=== PATIENT | female | born 1960 | race Caucasian/White ===

== ENCOUNTER 2020-04-23 16:40 | Emergency (ER) | payer BC, SELFPAY ==
--- NOTE | 2020-04-23 | CT_ITS ---
EXAMINATION: CT ANGIOGRAM OF THE CHEST WITH AND WITHOUT CONTRAST (CT PULMONARY ANGIOGRAM FOR PE) CLINICAL INFORMATION: Shortness of breath COMPARISON: Chest x-ray 02/04/2020, 04/23/2020 TECHNIQUE: Prior to contrast administration, noncontrast localization images were obtained. Subsequently, multidetector volumetric imaging was performed from the thoracic inlet to below the diaphragms following the administration of 80 mL Omnipaque 350 intravenous contrast. No contrast reaction reported Sagittal, coronal, and MIP oblique sagittal reformatted images were obtained on the CT workstation, uploaded to PACS, and reviewed. This CT examination was performed using dose optimization techniques as appropriate, variously including the following: *Automated exposure control *Adjustment of mA and/or kV according to patient size (this includes techniques or standardized protocols for targeted exams where dose is matched to indication/reason for exam; i.e. extremities or head) *Use of iterative reconstruction technique Total exam dose-length product 202 mGy-cm FINDINGS: QUALITY OF STUDY/CONTRAST BOLUS: Satisfactory. PULMONARY ARTERIES: No central or segmental pulmonary emboli. THORACIC AORTA: No aneurysm or dissection. LUNG: No infiltrate. No interstitial reticular opacities. Lung nodules: Smooth bordered lung nodule left upper lobe measuring 1 cm axial image 25 of 63. There is also an adjacent 5 mm nodule axial image 26 of 63. The largest lung nodule correlates to the density seen on the chest x-ray of 04/23/2020. PLEURA: No pleural effusion or pneumothorax. MEDIASTINUM: Normal heart size. No pericardial effusion. No hilar or mediastinal lymphadenopathy. No evidence of septal bowing or right heart strain. Central port catheter tip in superior vena cava CHEST WALL/AXILLA: No axillary or internal mammary lymphadenopathy. OSSEOUS STRUCTURES: No acute or suspicious osseous abnormality. UPPER ABDOMEN: Unremarkable. No reflux of contrast into the hepatic veins to suggest elevated right heart pressures. IMPRESSION: 1. No acute change of the chest. No evidence of pulmonary embolism. 2. 2 left upper lobe lung nodules. Largest measuring 1 cm. Various management parameters for solitary pulmonary nodules are in the literature. According to the UPDATED 2017 Fleischner Society recommendations, the advised follow-up imaging for a single solid nodule measuring 8 mm or greater is: Consider CT, PET/CT, or tissue sampling at 3 months. Reference: Guidelines for Management of Incidental Pulmonary Nodules Detected on CT Images: From the Fleischner Society 2017. VTE: negative
--- NOTE | 2020-04-23 | XR_ITS ---
EXAMINATION: XR CHEST CLINICAL INFORMATION: Shortness of breath COMPARISON: Chest x-ray 02/04/2020 TECHNIQUE: Frontal view of the chest was obtained. 5:01 PM FINDINGS: Tubes and lines: 1. Right-sided PICC line catheter tip at caval atrial junction. No acute change of chest. No infiltrate. No pulmonary vascular congestion. No pleural effusion. The heart size is normal. The cardiac and mediastinal contours are normal. There is a mildly dense nodule measuring 1 cm over the peripheral left lung. This was not present on the study of 02/04/2020. CT of chest would be helpful for further evaluation. IMPRESSION: 1. No acute infiltrate. No pulmonary vascular congestion. 2. 1 cm nodular opacity over the peripheral left lung new since prior study of 02/04/2020. CT of chest would be helpful for further assessment.
[2020-04-23 16:47] VITALS: BP 147/89; PULSE 114; RESP 28; TEMP 36.7; O2SAT 98; BMI 19.1
[2020-04-23] MEDS: Racepinephrine HCL 0.5 ML VIAL.NEB INHALE (16:52)
--- NOTE | 2020-04-23 17:20 | ED.SOB ---
HPI - SOB/Dyspnea General Chief Complaint: Dyspnea Stated Complaint: diff breathing Time Seen by Provider: 04/23/20 16:45 Source: patient Mode of arrival: wheelchair Limitations: physical limitation History of Present Illness HPI Narrative: Patient is a 60-year-old female with a history of colon cancer. Currently undergoing chemotherapy. Patient got her last chemotherapy today. Presented today with having sudden onset of increasing shortness of breath just after chemo. Denies any history of cardiac disease. Denies any history of blood clots. Currently on no blood thinners. No history of new medications. No fever no chills no coughing or congestion or upper respiratory prior. No recent travel. Patient denies any cardiac issues. No history of heart attacks. No history of congestive heart failure. No history of having similar episodes in the past. MD elicited complaint: shortness of breath Onset (ago): minute(s) Context: recent illness Severity: severe Exacerbating factors: nothing Relieving factors: nothing Associated symptoms: denies other symptoms Treatment prior to arrival: oxygen Related Data Home Medications Medication Instructions Recorded Confirmed capecitabine [Xeloda] 1,500 mg PO BID 04/23/20 04/23/20 dexamethasone [Decadron] 4 mg PO BID 04/23/20 04/23/20 ondansetron HCl [Zofran] 8 mg PO Q8H PRN 04/23/20 04/23/20 Previous Rx's Medication Instructions Recorded diphenhydramine HCl [Benadryl] 25 mg PO Q8H 5 Days #15 cap 04/23/20 epinephrine 0.3 mg IM ONCE PRN #1 ea 04/23/20 famotidine [Pepcid] 20 mg PO BID 5 Days #10 tab 04/23/20 Allergies Allergy/AdvReac Type Severity Reaction Status Date / Time Penicillins [PENICILLINS] Allergy Intermediate HIVES Verified 04/23/20 08:39 seasonal allergies Allergy Unknown Unknown Uncoded 04/23/20 08:39 Review of Systems Review of Systems: Yes Unobtainable due to mental condition PMFSH Past Medical History PMFSH Narrative: History of colon cancer currently undergoing chemotherapy. Status post colostomy Medical History (Updated 04/23/20 @ 20:05 by Shayla Patel MD) Anemia Cancer of sigmoid colon Diverticulitis GI bleed Small bowel obstruction Surgical History (Updated 04/23/20 @ 17:05 by Layla Brantley MD) History of colon resection Social History Social History Alcohol intake: former Smoking Status: Former smoker Substance Use Type: Marijuana Advance Directives: No Advance Directives Information Provided: No Advance Directives Date on File: 12/23/19 Physical Exam Vital Signs and I&O and Narrative: Vital Signs and I&O: Vital Signs Temp 98.0 F 04/23/20 16:47 Pulse 107 H 04/23/20 17:57 Resp 18 04/23/20 17:57 BP 136/66 04/23/20 17:57 Pulse Ox 97 04/23/20 17:57 Intake & Output 04/23/20 04/23/20 04/24/20 06:59 18:59 06:59 Weight 53.722 kg Body Mass Index 19.1 Const: General: comfortable, acute distress and in distress Orientation/consciousness: oriented to person HENMT: Head: Yes normal to inspection Face and sinus: Yes normal facial exam, Yes sinuses nontender, Yes face symmetric and Yes normal transillumination of sinuses Eyes: General: appearance normal, both eyes and all related structures Neck: Other: no JVDs noted. Trachea is midline. Neck: Yes normal visual inspection, Yes full ROM and Yes no lymphadenopathy Chest: Other: Positive shortness of breath with increased work of breathing. Positive stridor noted. Chest palpation & inspection: normal inspection of the chest Resp: Effort & Inspection: abnormal respiratory pattern, respiratory distress, stridor and uses accessory muscles Cardio: Jugular venous distension: no JVD Palpation: normal PMI Rate: tachycardic GI: Inspection: Yes normal to inspection Skin: General skin exam: no rashes or lesions noted Neuro: General: oriented to person Cognition (Neuro): normal cognition Extrem: General: Yes normal to inspection Psych: Appearance: grossly normal MDM - SOB/Dyspnea MDM Narrative Medical decision making narrative: Question allergic reaction. Patient just came from chemotherapy. Patient's lungs were clear O2 sat was normal. Given epinephrine nebulized treatment. Monitor in the emergency department for 2 hours. Patient already on steroids. Patient given Benadryl and also Pepcid with good results. Currently not short of breath. Patient D-dimer slightly elevated. A CTA of the chest was done. There is no evidence for pulmonary emboli. There is no pneumonia. There is no pneumothorax. Patient well-appearing O2 sat remains normal. Symptoms resolved. Question allergic reaction will discharge patient home close follow-up on an outpatient basis. Lab Data Result diagrams: 04/23/20 17:29 04/23/20 17:29 Labs: Lab Results 04/23/20 04/23/20 04/23/20 Range/Units 17:29 17:29 17:29 WBC 3.7 L (4.8-10.8) X10*3/uL RBC 3.96 L (4.20-5.50) X10*6/uL Hgb 12.0 (12.0-16.0) g/dl Hct 35.5 L (37-47) % MCV 89.6 (80-98) fL MCH 30.3 (27.0-33.0) pg MCHC 33.8 (31.0-35.0) g/dl RDW 21.3 H (11.0-16.0) % Plt Count 231 (160-400) X10*3/uL MPV 10.2 (9.4-12.3) fL Immature Gran % (Auto) 0.5 H (0.0-0.4) % Neut % (Auto) 76.9 H (45-73) % Lymph % (Auto) 21.2 (20-40) % [place] % (Auto) 1.1 L (2-11) % Eos % (Auto) 0.0 (0-4) % Baso % (Auto) 0.3 (0-2) % Neut # (Auto) 2.8 (2.0-8.3) X10*3/uL Lymph # (Auto) 0.8 L (1.2-4.9) X10*3/uL [place] # (Auto) 0.0 L (0.1-1.2) X10*3/uL Eos # (Auto) 0.0 (0.0-0.4) X10*3/uL Baso # (Auto) 0.0 (0.0-0.2) X10*3/uL Abs Immat Gran (auto) 0.02 (0.00-0.03) X10*3/uL Absolute Nucleated RBC 0.000 (0.0-0.012) X10*3/uL Nucleated RBC % (auto) 0.0 (0.0-0.2) /100WBC PT 10.0 L (10.8-13.0) SEC INR 0.8 L (0.9-1.1) D-Dimer 365 NG/ML Sodium 138 (135-145) mmol/L Potassium 3.7 (3.3-5.1) mmol/l Chloride 109 H (96-108) mmol/L Carbon Dioxide 18 L (22-29) mmol/L Anion Gap 15 (12-20) BUN 14 (9-16) mg/dL Creatinine 0.97 (0.5-1.4) mg/dL Estim Creat Clear Calc 53.0 Estimated GFR 59 Random Glucose 220 H D (60-115) mg/dL Calcium 8.8 (8.4-10.2) mg/dL Total Bilirubin 0.5 (0.0-1.0) mg/dL Direct Bilirubin 0.3 (0.0-0.5) mg/dL AST 19 (5-31) U/L ALT 19 (0-31) U/L Alkaline Phosphatase 133 H (39-117) U/L Troponin I High Sens (<3.5-17.0) ng/L B-Natriuretic Peptide (<100) pg/mL Total Protein 6.6 (6.5-8.0) g/dL Albumin 4.0 (3.5-5.0) g/dL 04/23/20 04/23/20 Range/Units 17:29 17:29 WBC (4.8-10.8) X10*3/uL RBC (4.20-5.50) X10*6/uL Hgb (12.0-16.0) g/dl Hct (37-47) % MCV (80-98) fL MCH (27.0-33.0) pg MCHC (31.0-35.0) g/dl RDW (11.0-16.0) % Plt Count (160-400) X10*3/uL MPV (9.4-12.3) fL Immature Gran % (Auto) (0.0-0.4) % Neut % (Auto) (45-73) % Lymph % (Auto) (20-40) % [place] % (Auto) (2-11) % Eos % (Auto) (0-4) % Baso % (Auto) (0-2) % Neut # (Auto) (2.0-8.3) X10*3/uL Lymph # (Auto) (1.2-4.9) X10*3/uL [place] # (Auto) (0.1-1.2) X10*3/uL Eos # (Auto) (0.0-0.4) X10*3/uL Baso # (Auto) (0.0-0.2) X10*3/uL Abs Immat Gran (auto) (0.00-0.03) X10*3/uL Absolute Nucleated RBC (0.0-0.012) X10*3/uL Nucleated RBC % (auto) (0.0-0.2) /100WBC PT (10.8-13.0) SEC INR (0.9-1.1) D-Dimer NG/ML Sodium (135-145) mmol/L Potassium (3.3-5.1) mmol/l Chloride (96-108) mmol/L Carbon Dioxide (22-29) mmol/L Anion Gap (12-20) BUN (9-16) mg/dL Creatinine (0.5-1.4) mg/dL Estim Creat Clear Calc Estimated GFR Random Glucose (60-115) mg/dL Calcium (8.4-10.2) mg/dL Total Bilirubin (0.0-1.0) mg/dL Direct Bilirubin (0.0-0.5) mg/dL AST (5-31) U/L ALT (0-31) U/L Alkaline Phosphatase (39-117) U/L Troponin I High Sens < 3.5 (<3.5-17.0) ng/L B-Natriuretic Peptide < 10 (<100) pg/mL Total Protein (6.5-8.0) g/dL Albumin (3.5-5.0) g/dL Critical Care Time Critical Care Time Critical Care Time: Yes Total Critical Care Time: 35 Attestation: I spent 35 minutes in assessing patient's critical condition. Evaluating patient's respiratory status. Treating patient's respiratory status. Discharge Plan Discharge Clinical Impression: Allergic reaction Patient Disposition: Home, Self-Care Instructions: Anaphylaxis (ED) Prescriptions: New epinephrine 0.3 mg/0.3 mL auto-injector 0.3 mg IM ONCE PRN (Reason: anaphylaxis) Qty: 1 RF: 0 famotidine [Pepcid] 20 mg tablet 20 mg PO BID 5 Days Qty: 10 RF: 0 diphenhydramine HCl [Benadryl] 25 mg capsule 25 mg PO Q8H 5 Days Qty: 15 RF: 0 No Action capecitabine [Xeloda] 500 mg tablet 1,500 mg PO BID RF: 0 ondansetron HCl [Zofran] 8 mg tablet 8 mg PO Q8H PRN (Reason: Nausea) RF: 0 dexamethasone [Decadron] 4 mg tablet 4 mg PO BID RF: 0 Referrals: Po,Zainab Yin MD [Primary Care Provider] - 2 days
[2020-04-23] MEDS: Famotidine/PF 20 MG/2 ML VIAL IVPUSH (17:32)
[2020-04-23] MEDS: diphenhydrAMINE HCL 50 MG/ML VIAL IVPUSH (17:32)
[2020-04-23 17:33] LABS: MANUAL DIFF FLAG NO
[2020-04-23 17:43] LABS: Basophils Percent Auto 0.3 % (0-2); Hematocrit 35.5 % (37-47); Imm Gran Abs Auto 0.02 X10*3/uL (0.00-0.03); Imm Gran Pct Auto 0.5 % (0.0-0.4); Lymphocytes Absolute Auto 0.8 X10*3/uL (1.2-4.9); Lymphocytes Percent Auto 21.2 % (20-40); Mean Corpuscular HGB Conc 33.8 g/dl (31.0-35.0); Mean Corpuscular Hemoglobin 30.3 pg (27.0-33.0); Mean Corpuscular Volume 89.6 fL (80-98); Mean Platelet Volume 10.2 fL (9.4-12.3); Monocytes Percent Auto 1.1 % (2-11); Neutrophils Absolute Auto 2.8 X10*3/uL (2.0-8.3); Neutrophils Percent Auto 76.9 % (45-73); Platelet Count 231 X10*3/uL (160-400); Red Blood Count 3.96 X10*6/uL (4.20-5.50); Red Cell Distribution Width 21.3 % (11.0-16.0); White Blood Count 3.7 X10*3/uL (4.8-10.8)
--- NOTE | 2020-04-23 17:43 | PC.NURSE ---
PT ABLE TO SPEAK IN FULL PROLONG SENTENCES PICC LINE WAS ACCESSED FOR MEDS AND LABS PT EMPTIED HER OSTOMY BAG
[2020-04-23 17:56] LABS: INTERNATIONAL NORM RATIO 0.8 (0.9-1.1)
[2020-04-23 17:57] VITALS: BP 136/66; PULSE 107; RESP 18; O2SAT 97
[2020-04-23 17:58] LABS: D Dimer 365 NG/ML
[2020-04-23 18:04] LABS: Alanine Aminotransferase 19 U/L (0-31); Alkaline Phosphatase 133 U/L (39-117); Anion Gap 15 (12-20); Aspartate Amino Transferase 19 U/L (5-31); Bilirubin Direct 0.3 mg/dL (0.0-0.5); Bilirubin Total 0.5 mg/dL (0.0-1.0); Blood Urea Nitrogen 14 mg/dL (9-16); Calcium 8.8 mg/dL (8.4-10.2); Carbon Dioxide 18 mmol/L (22-29); Chloride 109 mmol/L (96-108); Estimated Glomerular Filt Rate 59; Glucose Random 220 mg/dL (60-115); Potassium 3.7 mmol/l (3.3-5.1); Sodium 138 mmol/L (135-145); Total Protein 6.6 g/dL (6.5-8.0)
[2020-04-23 18:09] LABS: B Type Natriuretic Peptide < 10 pg/mL (<100); Troponin-I High Sensitivity < 3.5 ng/L (<3.5-17.0)
[2020-04-23] MEDS: iohexoL 350 MG/ML 100 ML INFUS..BTL IV (18:31)
== END 2020-04-23 20:46 | disposition home or self-care (01) ==
PROVIDERS: Emergency Provider Emergency Medicine Emergency Medical Services; PCP Internal Medicine
DX: T88.6XXA Anaphylactic reaction due to adverse effect of correct drug or medicament properly administered, initial encounter (principal); T45.1X5A Adverse effect of antineoplastic and immunosuppressive drugs, initial encounter; Y92.238 Other place in hospital as the place of occurrence of the external cause; R06.02 Shortness of breath
CPT/HCPCS: 36415; 71045; 71275; 80048; 80076; 83880; 84484; 85025; 85379; 85610; 93005; 96374; 96375; 99284; 99291; J1200

== ENCOUNTER → 2020-04-30 08:30 | Outpatient (BNV) | payer BC, SELFPAY | PROVIDERS: Visit Provider Internal Medicine Medical Oncology | DX: C18.7 Malignant neoplasm of sigmoid colon (principal) | CPT/HCPCS: 99213; 99214 ==

== ENCOUNTER → 2020-05-19 10:01 | Outpatient (BNVA) | payer BC, SELFPAY | PROVIDERS: PCP Nurse Practitioner Family; Visit Provider Surgery | DX: Z76.89 Persons encountering health services in other specified circumstances (principal) ==

== ENCOUNTER 2020-06-02 09:47 | Outpatient (REF) | payer BC, SELFPAY ==
--- NOTE | 2020-06-02 09:53 | FL_ITS ---
EXAMINATION: XR BARIUM ENEMA CLINICAL INFORMATION: Sigmoid colon cancer pre ileostomy reversal COMPARISON: Previous CT of the abdomen and pelvis most recent January 2020 TECHNIQUE: Dairy Feed Mixing Operator film was performed. A single contrast barium enema was performed using Gastrografin contrast. Contrast reaches the right colon and ileostomy. Postevacuation images were obtained. FINDINGS: There is a surgical staple line seen in the low midline pelvis. Dairy Feed Mixing Operator film is otherwise unremarkable. Contrast reaches the right colon and distal small bowel. There is diverticulosis of the colon. No leak is seen. FLUOROSCOPY TIME: 0.7 minutes DOSE AREA PRODUCT: 40 andrew per centimeter squared. Total dose 89 mgy. 28 combined overhead and fluoroscopic images. FL/FL barium enema IMPRESSION: Diverticulosis of the colon. No leak is seen.
[2020-06-02] MEDS: Diatrizoate Meglumine, Sodium 120 ML SOLUTION 720 ML PR (13:59)
== END 2020-06-02 09:48 | disposition home or self-care (01) ==
LOC: HO.XRAY 09:47
PROVIDERS: PCP Nurse Practitioner Family; Visit Provider Surgery
DX: C18.7 Malignant neoplasm of sigmoid colon (principal); Z93.2 Ileostomy status
CPT/HCPCS: 74270

== ENCOUNTER 2020-06-10 09:21 | Inpatient (IN) | payer BC, SELFPAY ==
[2020-06-05 14:38] VITALS: BMI 20.1
[2020-06-10] VITALS (17 sets, daily range): BP systolic 98–151; BP diastolic 50–78; PULSE 87–105; RESP 12–18; TEMP 36.3–36.8; O2SAT 93–100
[2020-06-10 09:15] LABS: COVID-19 Test Negative (Negative)
[2020-06-10] MEDS: Lactated Ringers 1,000 ML 100 ML IVCONT (09:30)
[2020-06-10] MEDS: SODIUM CHLORIDE 0.9% IV (09:46)
[2020-06-10] MEDS: GENTAMICIN SULFATE IV (09:46)
[2020-06-10] MEDS: Clindamycin Phosphate/D5W 900 MG/50 ML PIGGYBACK 50 MG IV (10:49)
--- NOTE | 2020-06-10 10:54 | MHC.SHP ---
Pre-Procedural Eval Section A The patient is an INPATIENT: No Changes since office visit: Yes Patient answered all questions; No Cold of Flu in the past 2 weeks, No New Medical Problems and No Changes in Medication The History & Physical has been completed within 30 days and I have reviewed it.: Yes Section B Chief Complaint: Ileostomy in place, s/p loop ileostromy closure Allergies: Allergies Allergy/AdvReac Type Severity Reaction Status Date / Time Penicillins [PENICILLINS] Allergy Intermediate Difficulty Verified 06/10/20 09:26 Breathing Plan Patient has been examined and remains a candidate for the planned procedure
--- NOTE | 2020-06-10 11:44 | P.CONAN_ITS ---
HPI - Anesthesia Eval Consult details Narrative: 60 yo female patient here for reversal of ileostomy PMFSH Past Medical History Medical History Anemia Cancer of sigmoid colon Diverticulitis GI bleed History of anxiety History of chemotherapy History of neuropathy History of tremor Hx of fracture Hx of shortness of breath Small bowel obstruction Wears partial dentures Family History Family history of problems with anesthesia: No Surgical History Surgical History H/O colonoscopy History of colon resection History of Problems with Anesthesia: No Social History Social History Are you a primary career and technology education teacher to a significant other at home: No Do you presently have visiting nurse or other home services: No Alcohol intake: former Smoking Status: Former smoker Packs Per Day: 1 Cigarettes Per Day: 20.0 Years Smoked: 44 Smoked in Last 30 Days: No Smoking Quit Date: 01/2020 Use of substances other than those prescribed or required for medical reasons: Yes Substance Use Type: Marijuana Substance Use Frequency: Occasionally Have you been hit, kicked, punched, or otherwise hurt by someone within the past year? If so, by whom?: No Spiritual Healthcare Practices: none Sabianist Healthcare Practices: none Cultural Healthcare Practices: none Advance Directives Information Provided: No Advance Directives Date on File: 12/23/19 Recently lost weight without trying: No Meds Allergies Allergy/AdvReac Type Severity Reaction Status Date / Time Penicillins [PENICILLINS] Allergy Intermediate Difficulty Verified 06/10/20 0 9:26 Breathing Exam Exam Date and Time: June 10, 2020 1144 Height,Weight and Vital Signs: Height 5 ft 6 in Weight 56.699 kg Last Vital Signs Temp 97.9 F 06/10/20 09:14 Pulse 87 06/10/20 09:14 Resp 16 06/10/20 09:14 BP 113/52 L 06/10/20 09:14 Pulse Ox 98 06/10/20 09:14 Pertinent Lab Results Pertinent Lab Results: Laboratory Tests 06/10/20 06/10/20 08:45 09:03 COVID-19 (DON) Negative COVID-19 Clin Com See Note Blood Type A Positive Antibody Screen NEGATIVE Airway Mallampati Class: II TM Dist: >3cm Neck ROM: Full Partial: Upper Heart: RRR Lungs: CTAB Assessment and Plan Assessment Anesthesia Assessment: Anesthesia Plan Discussed and Chart Reviewed Final Anesthetic Review NPO: Yes ASA Class: III Final Preanesthetic Review: No Changes in Pt Med Stat, Meds/Allgs Chart Reviewed, Consent Obtained/Reviewed and Anes Risks/Benef Reviewed Patient Risk: Intermediate Procedure Risk: Intermediate Anesthetic Plan Anesthetic Plan: GA Disposition: Standard PACU
[2020-06-10] MEDS: ondansetron HCL 4 MG/2 ML VIAL IVPUSH (14:25)
--- NOTE | 2020-06-10 14:42 | W.PM.OPN ---
Operative Note Operative Note Date of Service: 06/10/20 Narrative: Preoperative diagnosis: Ileostomy in place Postoperative diagnosis: Same Procedure: Closure of loop ileostomy Anesthesia: General endotracheal Recycler Forklift Driver Truck Driver: Janet Conte PA-C Estimated blood loss: 30 cc Specimens: Ileostomy, small-bowel anastomosis Other findings: None Immediate complications: None Indications: This is a 60-year-old female who is status post resection of a bulky carcinoma of the distal sigmoid colon. Protective loop ileostomy was created. She has completed chemotherapy. Gastrografin enema reveals that the rectosigmoid anastomosis is intact and ileostomy closure is planned. Procedure in detail: With patient in the supine position following induction of adequate general anesthesia, time-out procedure was performed. The peristomal area was prepped with Betadine solution in the remainder of the abdominal wall with ChloraPrep. Sterile drapes were applied. She received 2 g of cefazolin for antibiotic prophylaxis. Incision was made around the margin of the yet ileostomy 2-3 mm beyond the mucocutaneous margin was carried into the subcutaneous tissues. The loop of ileum was then dissected free using Metzenbaum dissection. Once the loop was completely freed, sterile towels were placed around wound edges. The ileostomy was resected. Windows were created in the mesentery at the margin of healthy appearing ileum proximal and distal to the ostomy. The ileum was divided in both positions using the RACHAEL 3.8 stapler. The intervening mesentery was divided between hemostats and ligated with 3-0 Polysorb ties. There was moderate bleeding from the mesentery and to him a small hematoma was evident initially. A functional end-to-end anastomosis was created between the stapled edges of the ileum using the RACHAEL 60, 3.8 and TA 60, 3.5 staplers. The. There was no bleeding from staple lines. The anastomosis appeared widely patent. A reinforcing suture of 3 0 Polysorb was placed at the crotch of the anastomosis. The loop of bowel was irrigated with saline solution and was inspected for bleeding. No bleeding was seen. It was noted that the hematoma in the mesentery appeared somewhat larger but did not appear to be expanding. Gloves were changed. An attempt was made to reduce the loop of ileum a through the opening in the abdominal wall. When this was done, the serosa overlying of the hematoma split and there was some oozing. This was controlled initially with a [id number] suture of 3 0 Polysorb. It was unclear whether there was slow ongoing bleeding in the mesentery. Decision was made to and resected the anastomosis and adjacent mesentery and to recreate the anastomosis. This was done. The opening in the fascial low wall of the abdomen also was somewhat tight.. The fascia was incised along the cephalad margin that for about 5 mm to allow for improved mobility. The new anastomosis was then resected. Windows were created in the mesentery at the bowel margin proximal and distal to the new anastomosis and the 2 limbs of ileum were divided using the RACHAEL 60, 3.8 stapler. The LigaSure was employed to divide the intervening mesentery. No significant bleeding was encountered. A new functional end-to-end anastomosis was then created between the 2 stapled ends of ileum using the RACHAEL 60, 3.8 stapler and the TA 60, 3.5 stapler. There was no bleeding from the internal staple line. There was some oozing from the external staple line and this was controlled using the electrosurgical pencil. The loop of bowel was irrigated with saline solution. The anastomosis was widely patent. There was no bleeding from the mesentery or external staple line. Gloves and instruments were changed. The loop of bowel was returned through the abdominal wall and the right lower quadrant was copiously irrigated with warm saline solution. There is no evidence of bleeding. Fascia was infiltrated with local anesthetic. The fascia was then closed with a running suture of 1. Maxon. Subcutaneous tissues were irrigated with saline solution. No bleeding was noted. Subcutaneous tissues were infiltrated with local anesthetic in skin was loosely closed with shreya. Wound aleisha of quarter-inch plain packing were placed between shreya and a dry sterile dressing was applied. Sponge instrument counts were correct x2. She tolerated the procedure well and was transported to the recovery room in stable condition. There were no immediate complications.
[2020-06-10] MEDS: HYDROmorphone HCl 0.5 MG/0.5 ML SYRINGE 0.25 MG IVPUSH ×2 (15:12→15:17)
[2020-06-10] MEDS: Dextrose 5 % and Lactated Ring 1,000 ML 80 ML IVCONT (17:30)
[2020-06-10] MEDS: HYDROmorphone HCl 0.5 MG/0.5 ML SYRINGE IVPUSH ×2 (20:03→23:25)
[2020-06-10] MEDS: Acetaminophen 325 MG TABLET 975 MG PO (22:38)
[2020-06-10] MEDS: Magnesium Hydrox/Alum Hydrox 30 ML ORAL.SUSP PO (22:52)
[2020-06-11] VITALS (8 sets, daily range): BP systolic 109–157; BP diastolic 55–76; PULSE 85–102; RESP 18; TEMP 36.5–36.8; O2SAT 94–97
[2020-06-11] MEDS: HYDROmorphone HCl 0.5 MG/0.5 ML SYRINGE IVPUSH ×5 (02:25→20:19)
[2020-06-11] MEDS: Acetaminophen 325 MG TABLET 975 MG PO ×2 (04:07→08:28)
[2020-06-11] MEDS: Dextrose 5 % and Lactated Ring 1,000 ML 80 ML IVCONT ×2 (04:08→16:47)
[2020-06-11 06:58] LABS: Hematocrit 33.6 % (37-47); Hemoglobin 11.4 g/dl (12.0-16.0); Mean Corpuscular HGB Conc 33.9 g/dl (31.0-35.0); Mean Corpuscular Hemoglobin 33.1 pg (27.0-33.0); Mean Corpuscular Volume 97.7 fL (80-98); Mean Platelet Volume 10.5 fL (9.4-12.3); Platelet Count 298 X10*3/uL (160-400); Red Blood Count 3.44 X10*6/uL (4.20-5.50); Red Cell Distribution Width 14.7 % (11.0-16.0); White Blood Count 10.9 X10*3/uL (4.8-10.8)
[2020-06-11 07:34] LABS: Anion Gap 10 (12-20); Blood Urea Nitrogen 7 mg/dL (9-16); Calcium 8.6 mg/dL (8.4-10.2); Carbon Dioxide 26 mmol/L (22-29); Chloride 106 mmol/L (96-108); Creatinine Clr Calc Pharmacy 80.9; Estimated Glomerular Filt Rate > 60; Glucose Fasting 110 mg/dL (60-99); Potassium 4.1 mmol/l (3.3-5.1); Sodium 138 mmol/L (135-145)
--- NOTE | 2020-06-11 07:47 | PM.PNGS ---
Subjective Subjective Interval history: A little sore at incision site but comfortable with analgesics. Tolerating liquids without nausea or vomiting. Notes belching occasionally. Denies flatus. Physical Exam Vital Signs: Vital Signs: Last Vital Signs Temp 98.2 F 06/11/20 03:50 Pulse 94 06/11/20 03:50 Resp 18 06/11/20 05:27 BP 122/62 06/11/20 03:50 Pulse Ox 96 06/11/20 03:50 Body Mass Index 20.1 Const: General: comfortable, no acute distress and alert Orientation/consciousness: patient oriented x3 Eyes: Sclerae: sclerae normal Resp: Effort & Inspection: normal respiratory effort GI: Other: dressing changed, wound aleisha advanced, no erythema of incision Inspection: No distended Palpation (GI): Soft to palpation, Tenderness to palpation present (GI) (mild, incisional) and No Rebound tenderness present Auscultation: normal bowel sounds Skin: General skin exam: no rashes or lesions noted Neuro: General: patient oriented x3 Extrem: General: Yes no clubbing, cyanosis or edema Progress Note: A&P Assessment and plan (1) Status post reversal of ileostomy: Status: Acute Assessment and Plan: Doing well post operatively, comfortable. VSS. Abd exam benign- soft, appropriate post op tenderness. Incision clean, wound aleisha advanced. Will advance to low residue diet. OOB/ambulation of halls encouraged. Await return of GI fxn. (2) Cancer of sigmoid colon: Status: Acute (3) Ileostomy in place: Status: Acute Fall Risk Details Current Medications: Current Medications Generic Name Dose Route Start Last Admin Trade Name Kikeq PRN Reason Stop Dose Admin Acetaminophen 975 mg 06/10/20 21:00 06/11/20 04:07 Acetaminophen 325 Mg Tablet PO 975 mg Q6H JAMESON Administration Al Hydroxide/Mg Hydroxide 30 ml 06/10/20 22:46 06/10/20 22:52 Magnesium Hydrox/Alum Hydrox 30 Ml Oral.Susp PO 30 ml Q4H PRN Administration Heartburn Alprazolam 0.5 mg 06/10/20 17:01 Alprazolam 0.5 Mg Tablet PO BID PRN Anxiety Hydromorphone HCl 0.5 mg 06/10/20 17:01 06/11/20 05:27 Hydromorphone Hcl 0.5 Mg/0.5 Ml Syringe IVPUSH 0.5 mg Q3H PRN Administration Pain, Severe (Pain Scale 7-10) Dextrose/Lactated Ringer's 1,000 mls @ 80 mls/hr 06/10/20 17:01 06/11/20 04:08 D5lr IVCONT 80 mls/hr .[id number] JAMESON Administration Ondansetron HCl 4 mg 06/10/20 17:01 Ondansetron Hcl 4 Mg/2 Ml Vial IVPUSH Q8H PRN Nausea and Vomiting Oxycodone HCl 5 mg 06/10/20 17:01 Oxycodone Hcl Immed Release 5 Mg Tablet PO Q4H PRN Pain, Moderate (Pain Scale 4-6 Time Spent With Patient Time: Total time spent is greater than 50% in coordination of care (as documented) at patient's floor/unit and/or counseling patient: Time with patient: 15 - 24 minutes Procedures Abscess I/D Date of Service: 06/11/20
[2020-06-11] MEDS: ondansetron HCL 4 MG/2 ML VIAL IVPUSH (08:36)
--- NOTE | 2020-06-11 11:10 | HO.POSTANES ---
Post Anesthesia Evaluation Post Anesthesia Evaluation Vital Signs: Vital Signs Temp Pulse Resp BP Pulse Ox 06/11/20 08:00 97.7 F 91 18 133/66 97 06/11/20 05:27 18 06/11/20 03:50 98.2 F 94 18 122/62 96 06/11/20 02:25 18 06/10/20 23:25 18 06/10/20 23:24 98.1 F 91 18 98/50 L 96 Anesthesia: General Mental Status: Awake Pain Control: Satisfactory Nausea/Vomiting: None Hydration: Adequate Anesthesia-Related Issues: No Anes. Related Issues
--- NOTE | 2020-06-11 13:24 | MHC.CM.PN ---
NURSE ARBORER NOTE ELECTRONIC MEDICAL RECORD REVIEWED ALONG WITH CASE DISCUSSED WITH STAFF NURSE , MET WITH PATIENT AND EXPLAINED THE ROLE OF THE NURSE ARBORER IN THE TRANSITION FROM THE HOSPITAL, PATIENT HAD S/P CLOSURE OF ILLEOSTOMY FOR SIGMOID CANCER , SHE IS S/P CHEMOTHEAPRY. SHE LIVES WITH HER AND IS INDEPENDENT IN ALL HER ADLS AND MBIITY WITH UT ANY DEVICE . PATIENT REPORTED SHE HAD THE [facility] FROM [facility] TO APRIL , AND WOULD LIKE TO HAVE THEM BACK AT DISCHARGE IF THE DOCTOR SAYS THIS IS NEEDED , CONFIRMED PCP DR LESLI PERERA DISCHARGE PLAN HOME NO SERVICES VS HOME WITH [facility] FOR NRUSING IF REQUIRED (INIATED TREFERRAL TO THE [facility] ) PCP DR LESLI PERERA PATIENT TO CALL FOR POST HPSITLQA DISCHARGE FOLLOW UP SURGICAL FOLLOW UP PER DISCHARGE INSTRUCTIONS TRANSPORTATION FAMILY
[2020-06-12] VITALS (8 sets, daily range): BP systolic 124–153; BP diastolic 58–76; PULSE 83–93; RESP 16–18; TEMP 36.2–37.2; O2SAT 92–98
[2020-06-12] MEDS: HYDROmorphone HCl 0.5 MG/0.5 ML SYRINGE IVPUSH ×4 (00:53→18:57)
[2020-06-12] MEDS: Dextrose 5 % and Lactated Ring 1,000 ML 80 ML IVCONT ×2 (04:08→17:08)
--- NOTE | 2020-06-12 07:52 | P.PNGS_ITS ---
Subjective Subjective Interval history: Feels better this morning. Had two episodes of emesis yesterday. Later began passing flatus and had a BM. Has been OOB and ambulating. Incisional pain is better. <Janet Conte PA-C Last Filed: 06/12/20 07:56> Physical Exam Vital Signs: Vital Signs: Last Vital Signs Temp 97.2 F 06/12/20 07:40 Pulse 87 06/12/20 07:40 Resp 18 06/12/20 07:40 BP 125/63 06/12/20 07:40 Pulse Ox 98 06/12/20 07:40 Body Mass Index 20.1 <CARLOS Tello Last Filed: 06/12/20 07:56> Const: General: comfortable, no acute distress and alert <CARLOS Tello Filed: 06/12/20 07:56> Orientation/consciousness: patient oriented x3 <MARKIE Tello Filed: 06/12/20 07:56> Eyes: Sclerae: sclerae normal <MARKIE Tello Filed: 06/12/20 07:56> Resp: Effort & Inspection: normal respiratory effort <MARKIE TelloDeya Filed: 06/12/20 07:56> Cardio: Rate: regular rate <MARKIE TelloDeya Filed: 06/12/20 07:56> GI: Inspection: No distended and Yes incision (clean, no erythema, wound aleisha removed) <CARLOS Tello Last Filed: 06/12/20 07:56> Palpation (GI): Soft to palpation, Tenderness to palpation present (GI) (mild, incisional) and No Rebound tenderness present <CARLOS Tello [employer] Last Filed: 06/12/20 07:56> Auscultation: normal bowel sounds <CARLOS Tello [employer] Filed: 06/12/20 07:56> Skin: General skin exam: no rashes or lesions noted <MARKIE Tello Filed: 06/12/20 07:56> Neuro: General: patient oriented x3 <Janet Conte PA-C - Last Filed: 06/12/20 07:56> Extrem: General: Yes no clubbing, cyanosis or edema <Janet Conte PA-C - Last Filed: 06/12/20 07:56> Progress Note: A&P Assessment and plan (1) Ileostomy in place: Status: Acute <Janet Conte PA-C - Last Filed: 06/12/20 07:56> (2) Cancer of sigmoid colon: Status: Acute <Janet Conte PA-C - Last Filed: 06/12/20 07:56> (3) Status post reversal of ileostomy: Status: Acute <Janet Conte PA-C - Last Filed: 06/12/20 07:56> Assessment and Plan: Doing fairly well post operatively, now with return of GI function. VSS. Abd exam benign- soft, mild incisional tenderness, incision clean and wound aleisha removed. Diet as tolerated. Continue to encourage OOB and ambulation. Home likely in next 1-2 days if tolerating solid diet and remains stable. <Janet Conte PA-C - Last Filed: 06/12/20 07:56> Seen and examined, agree with above. Continue IV fluids, increase activity as tolerated. <Olga Lidia Hess MD - Last Filed: 06/12/20 08:38> Fall Risk Details Current Medications: Current Medications Generic Name Dose Route Start Last Admin Trade Name Freq PRN Reason Stop Dose Admin Acetaminophen 975 mg 06/10/20 21:00 06/12/20 02:06 Acetaminophen 325 Mg Tablet PO Not Given Q6H JAMESON Al Hydroxide/Mg Hydroxide 30 ml 06/10/20 22:46 06/10/20 22:52 Magnesium Hydrox/Alum Hydrox 30 Ml Oral.Susp PO 30 ml Q4H PRN Administration Heartburn Alprazolam 0.5 mg 06/10/20 17:01 Alprazolam 0.5 Mg Tablet PO BID PRN Anxiety Hydromorphone HCl 0.5 mg 06/10/20 17:01 06/12/20 00:53 Hydromorphone Hcl 0.5 Mg/0.5 Ml Syringe IVPUSH 0.5 mg Q3H PRN Administration Pain, Severe (Pain Scale 7-10) Dextrose/Lactated Ringer's 1,000 mls @ 80 mls/hr 06/10/20 17:01 06/12/20 04:08 D5lr IVCONT 80 mls/hr .[id number] JAMESON Administration Ondansetron HCl 4 mg 06/10/20 17:01 06/11/20 08:36 Ondansetron Hcl 4 Mg/2 Ml Vial IVPUSH 4 mg Q8H PRN Administration Nausea and Vomiting Oxycodone HCl 5 mg 06/10/20 17:01 Oxycodone Hcl Immed Release 5 Mg Tablet PO Q4H PRN Pain, Moderate (Pain Scale 4-6 <Janet Conte PA-C - Last Filed: 06/12/20 07:56> Time Spent With Patient Time: Total time spent is greater than 50% in coordination of care (as documented) at patient's floor/unit and/or counseling patient: <Janet Conte PA-C - Last Filed: 06/12/20 07:56> Time with patient: 15 - 24 minutes <Janet Conte PA-C - Last Filed: 06/12/20 07:56> Procedures Abscess I/D Date of Service: 06/12/20 <PUNEET Tello Last Filed: 06/12/20 07:56>
--- NOTE | 2020-06-12 11:26 | MHC.CM.PN ---
nurse care transitions manager [facility] electronic medical record reviewed along with case discussed with staff nurse . met with patient she reported that she is felling better today than yesterday,(06/11 2 episodes f nausea and emesis) she is passing flatus and had small bowel movement and mild incisional pain per documentation surgeons cleaned the insicion site ,aleisha remain in place, diet advanced, liquids, continue iv fluids and iv pain medication titrate down and to oral analgeics, patient is ambulating in the room per documentation9 if patient continues to do well and then tolerate solid foods keturah may be discharged 1-2 days ,) discharge plan home no services vs home with [facility] for nrusing if required care transitions manager to continue to follow for discharge needs, pcp dr liberty loja patient to call for follow up for post hospital discharge surgical follow up per discharge instructions
[2020-06-13] MEDS: HYDROmorphone HCl 0.5 MG/0.5 ML SYRINGE IVPUSH (01:18)
[2020-06-13] MEDS: Dextrose 5 % and Lactated Ring 1,000 ML 80 ML IVCONT (03:23)
[2020-06-13 04:06] VITALS: BP 111/58; PULSE 88; RESP 17; TEMP 36.6; O2SAT 97
[2020-06-13 07:54] VITALS: BP 140/67; PULSE 92; RESP 16; TEMP 36.6; O2SAT 95
[2020-06-13] MEDS: oxyCODONE HCl Immed Release 5 MG TABLET PO ×2 (10:47→20:53)
[2020-06-13 12:04] VITALS: BP 138/77; PULSE 96; RESP 16; TEMP 36.2; O2SAT 93
--- NOTE | 2020-06-13 13:05 | PM.PNGS ---
Subjective Subjective Interval history: Feels better today. She is having less pain. No nausea. Passing flatus. Tolerating solid diet. Physical Exam Vital Signs: Vital Signs: Last Vital Signs Temp 97.1 F 06/13/20 12:04 Pulse 96 06/13/20 12:04 Resp 16 06/13/20 12:04 BP 138/77 06/13/20 12:04 Pulse Ox 93 06/13/20 12:04 Body Mass Index 20.1 Const: Other: Alert, appears comfortable Resp: Effort & Inspection: normal respiratory effort Auscultation: clear to auscultation bilaterally Cardio: Rate: regular rate Rhythm: regular rhythm GI: Other: Soft, nondistended, normoactive bowel sounds, incision right lower quadrant is clean and well approximated. Small amount of serous drainage noted on dressing. Skin: Other: Normal color, warm and dry Progress Note: A&P Assessment and plan (1) Status post reversal of ileostomy: Status: Acute Assessment and Plan: She is doing well postoperatively. Pain has diminished and she is tolerating solid diet. IV fluids will be discontinued. She will try the oxycodone for pain as needed. Anticipate discharge in next 24-48 hours. Fall Risk Details Current Medications: Current Medications Generic Name Dose Route Start Last Admin Trade Name Freq PRN Reason Stop Dose Admin Acetaminophen 975 mg 06/10/20 21:00 06/13/20 09:16 Acetaminophen 325 Mg Tablet PO Not Given Q6H JAMESON Al Hydroxide/Mg Hydroxide 30 ml 06/10/20 22:46 06/10/20 22:52 Magnesium Hydrox/Alum Hydrox 30 Ml Oral.Susp PO 30 ml Q4H PRN Administration Heartburn Alprazolam 0.5 mg 06/10/20 17:01 Alprazolam 0.5 Mg Tablet PO BID PRN Anxiety Hydromorphone HCl 0.5 mg 06/10/20 17:01 06/13/20 01:18 Hydromorphone Hcl 0.5 Mg/0.5 Ml Syringe IVPUSH 0.5 mg Q3H PRN Administration Pain, Severe (Pain Scale 7-10) Ondansetron HCl 4 mg 06/10/20 17:01 06/11/20 08:36 Ondansetron Hcl 4 Mg/2 Ml Vial IVPUSH 4 mg Q8H PRN Administration Nausea and Vomiting Oxycodone HCl 5 mg 06/10/20 17:01 06/13/20 10:47 Oxycodone Hcl Immed Release 5 Mg Tablet PO 5 mg Q4H PRN Administration Pain, Moderate (Pain Scale 4-6 Time Spent With Patient Time: Total time spent is greater than 50% in coordination of care (as documented) at patient's floor/unit and/or counseling patient: Time with patient: less than 15 minutes Procedures Abscess I/D Date of Service: 06/13/20
[2020-06-13] MEDS: Docusate Sodium 100 MG CAPSULE PO ×2 (14:07→20:52)
--- NOTE | 2020-06-13 15:57 | PC.NURSE ---
Pt requested previously refused tylenol on 06/13/20 at 1555.
[2020-06-13] MEDS: Acetaminophen 325 MG TABLET 975 MG PO ×2 (16:00→20:52)
[2020-06-13 16:05] VITALS: BP 160/80; PULSE 94; RESP 17; TEMP 36.6; O2SAT 98
[2020-06-13 19:55] VITALS: BP 137/73; RESP 18; TEMP 36.4; O2SAT 97
[2020-06-13 23:10] VITALS: BP 114/71; PULSE 99; RESP 18; TEMP 36.2; O2SAT 96
[2020-06-14 03:36] VITALS: BP 142/76; PULSE 64; RESP 18; TEMP 36.3; O2SAT 98
[2020-06-14 07:50] VITALS: BP 127/71; PULSE 96; RESP 16; TEMP 36.1; O2SAT 97
[2020-06-14] MEDS: Acetaminophen 325 MG TABLET 975 MG PO (08:36)
[2020-06-14] MEDS: oxyCODONE HCl Immed Release 5 MG TABLET PO (08:36)
[2020-06-14] MEDS: Docusate Sodium 100 MG CAPSULE PO (08:36)
--- NOTE | 2020-06-14 09:35 | PM.PNGS ---
Subjective Subjective Interval history: Feels better today. Less incisional pain. Tolerating solid diet. Physical Exam Vital Signs: Vital Signs: Last Vital Signs Temp 96.9 F 06/14/20 07:50 Pulse 96 06/14/20 07:50 Resp 16 06/14/20 07:50 BP 127/71 06/14/20 07:50 Pulse Ox 97 06/14/20 07:50 Body Mass Index 20.1 Const: Other: Alert, appears comfortable, in no distress GI: Other: Soft, nondistended, normal bowel sounds, right lower quadrant incision is clean, dry and intact Progress Note: A&P Assessment and plan (1) Status post reversal of ileostomy: Status: Acute Assessment and Plan: She is doing well following closure of diverting loop ileostomy. She will be discharged today and will follow up in the office as scheduled. (2) Cancer of sigmoid colon: Status: Acute Fall Risk Details Current Medications: Current Medications Generic Name Dose Route Start Last Admin Trade Name Freq PRN Reason Stop Dose Admin Acetaminophen 975 mg 06/10/20 21:00 06/14/20 08:36 Acetaminophen 325 Mg Tablet PO 975 mg Q6H JAMESON Administration Al Hydroxide/Mg Hydroxide 30 ml 06/10/20 22:46 06/10/20 22:52 Magnesium Hydrox/Alum Hydrox 30 Ml Oral.Susp PO 30 ml Q4H PRN Administration Heartburn Alprazolam 0.5 mg 06/10/20 17:01 Alprazolam 0.5 Mg Tablet PO BID PRN Anxiety Docusate Sodium 100 mg 06/13/20 13:15 06/14/20 08:36 Docusate Sodium 100 Mg Capsule PO 100 mg BID JAMESON Administration Hydromorphone HCl 0.5 mg 06/10/20 17:01 06/13/20 01:18 Hydromorphone Hcl 0.5 Mg/0.5 Ml Syringe IVPUSH 0.5 mg Q3H PRN Administration Pain, Severe (Pain Scale 7-10) Ondansetron HCl 4 mg 06/10/20 17:01 06/11/20 08:36 Ondansetron Hcl 4 Mg/2 Ml Vial IVPUSH 4 mg Q8H PRN Administration Nausea and Vomiting Oxycodone HCl 5 mg 06/10/20 17:01 06/14/20 08:36 Oxycodone Hcl Immed Release 5 Mg Tablet PO 5 mg Q4H PRN Administration Pain, Moderate (Pain Scale 4-6 Time Spent With Patient Time: Total time spent is greater than 50% in coordination of care (as documented) at patient's floor/unit and/or counseling patient: Time with patient: 15 - 24 minutes Procedures Abscess I/D Date of Service: 06/14/20
--- NOTE | 2020-06-14 09:38 | P.DS_ITS ---
DS: Providers Provider Date of admission: 06/10/20 09:21 Primary care physician: Mone Guerra NP DS: Diagnosis Discharge Diagnosis (1) Status post reversal of ileostomy: Status: Acute (2) Cancer of sigmoid colon: Status: Acute Problem details: Status post resection with creation of diverting loop ileostomy (ileostomy closed this admission). DS: Medications Discharge Medications Home Medications: Previous Rx's Medication Instructions Recorded alprazolam 0.5 mg PO BID PRN #60 tab 04/27/20 oxycodone 5 mg PO Q4H PRN #10 tab 06/14/20 DS: Summary Hospital Course Hospital Course: This is a 60-year-old female who presented for closure of diverting loop ileostomy, status post resection of carcinoma of the sigmoid colon and completion of adjuvant chemotherapy. On the day of admission, she was taken to the operating room where closure of diverting loop ileostomy was carried out. She tolerated the procedure well. Postoperatively, she was able to tolerate a clear liquid diet. Diet was gradually advanced to solid. She had return of bowel function and by the day of discharge, had good pain control on oral pain medication. Status at Discharge Functional status at discharge: independent ambulation Overall status at discharge: patient is progressing back to baseline Time Spent with Patient Time attestation: Total time spent providing and/or coordinating discharge services: Discharge coordination time: Less than 30 minutes Physical Exam Vital Signs: Vital Signs: Last Vital Signs Temp 96.9 F 06/14/20 07:50 Pulse 96 06/14/20 07:50 Resp 16 06/14/20 07:50 BP 127/71 06/14/20 07:50 Pulse Ox 97 06/14/20 07:50 Body Mass Index 20.1 Const: Other: Alert, comfortable, healthy-appearing HENMT: Head: Yes normocephalic and Yes atraumatic Neck: Neck: Yes normal visual inspection Resp: Auscultation: clear to auscultation bilaterally Cardio: Rate: regular rate Rhythm: regular rhythm GI: Other: Soft, nondistended, right lower quadrant incision is clean, dry and intact Psych: Insight: Good insight present (Psych) Judgement: Good judgement present (Psych) DS: Data Data Completed and Pending Pending studies at discharge: Pending at discharge 06/10/20 13:20 Surgical [PTH] Routine Labs on day of discharge: 06/09/20 13:38 Gentamicin Sulfate [Garamycin] 260 mg 0.9 % Sodium Chloride [Ns] 100 ml IV PREOP 06/10/20 08:41 Clindamycin Phosphate/D5W [Cleocin] 900 mg in 50 ml IV PREOP 06/10/20 08:45 COVID-19 ID NOW (Perez) Stat 06/10/20 09:03 Type and Screen Stat 06/10/20 09:15 Gentamicin Sulfate [Garamycin] 260 mg 0.9 % Sodium Chloride [Ns] 100 ml IV PREOP 06/10/20 09:26 Clindamycin Phosphate/D5W [Cleocin] 900 mg in 50 ml IV As directed 06/10/20 11:00 Gentamicin Sulfate [Garamycin] 260 mg 0.9 % Sodium Chloride [Ns] 100 ml IV PREOP 06/10/20 11:45 Lactated Ringers [Lr] 1,000 ml IVCONT 100 mls/hr 06/10/20 12:05 Bupivacaine MPF 0.75 % w/EPI [Sensorcaine MPF 0.75%/EPI 1:200,000] 30 ml .ROUT E .STK-MED ONE Midazolam HCl/PF [Versed] 2 mg .ROUTE .STK-MED ONE fentaNYL citrate/PF [Sublimaze] 2,500 mcg .ROUTE .STK-MED ONE 06/10/20 12:24 Lidocaine HCl 2 % MPF [Xylocaine 2 % MPF] 5 ml .ROUTE .STK-MED ONE Rocuronium [place] [Zemuron] 100 mg IV .STK-MED ONE dexAMETHasone sod phosphate [Decadron] 4 mg .ROUTE .STK-MED ONE ondansetron HCL [Zofran] 4 mg .ROUTE .STK-MED ONE propofoL [Diprivan] 200 mg IVPUSH .STK-MED ONE 06/10/20 12:44 Phenylephrine HCL 1,000 mcg IVPUSH .STK-MED ONE 06/10/20 12:56 Glycopyrrolate [Robinul] 0.2 mg .ROUTE .STK-MED ONE 06/10/20 13:02 Sugammadex Sodium [Bridion] 200 mg IVPUSH .STK-MED ONE 06/10/20 13:06 Phenylephrine HCL 10 mg .ROUTE .STK-MED ONE 06/10/20 13:45 Promethazine HCL [Phenergan] 6.25 mg 0.9 % Sodium Chloride [Ns] 50 ml IV ONCE ondansetron HCL [Zofran] 4 mg IVPUSH ONCE PRN 06/10/20 13:49 HYDROmorphone HCl [Dilaudid] 0.25 mg IVPUSH Q5M PRN 06/10/20 14:11 HYDROmorphone HCl [Dilaudid] 2 mg .ROUTE .[facility] ONE 06/10/20 14:16 Transfer Order Routine 06/10/20 14:23 Acetaminophen [Ofirmev] 1,000 mg in 100 ml IV ONCE 06/10/20 14:28 ondansetron HCL [Zofran] 4 mg .ROUTE .[facility] ONE 06/10/20 14:40 Acetaminophen [Ofirmev] 1,000 mg in 100 ml IV As directed 06/10/20 15:10 HYDROmorphone HCl [Dilaudid] 0.5 mg .ROUTE .[facility] ONE 06/10/20 Lunch Clear Liquid Diet 06/10/20 17:01 Dextrose 5 % and Lactated Ring [D5lr] 1,000 ml IVCONT 80 mls/hr 06/10/20 17:01 Compression Therapy QSHIFT 06/11/20 06:16 Basic Metabolic Panel Fasting Routine Complete Blood Count no Diff Routine Laboratory Last Values WBC 10.9 X10*3/uL (4.8-10.8) H 06/11/20 06:16 RBC 3.44 X10*6/uL (4.20-5.50) L 06/11/20 06:16 Hgb 11.4 g/dl (12.0-16.0) L 06/11/20 06:16 Hct 33.6 % (37-47) L 06/11/20 06:16 MCV 97.7 fL (80-98) 06/11/20 06:16 MCH 33.1 pg (27.0-33.0) H 06/11/20 06:16 MCHC 33.9 g/dl (31.0-35.0) 06/11/20 06:16 RDW 14.7 % (11.0-16.0) 06/11/20 06:16 Plt Count 298 X10*3/uL (160-400) D 06/11/20 06:16 MPV 10.5 fL (9.4-12.3) 06/11/20 06:16 Absolute Nucleated RBC 0.000 X10*3/uL (0.0-0.012) 06/11/20 06:16 Nucleated RBC % (auto) 0.0 /100WBC (0.0-0.2) 06/11/20 06:16 Sodium 138 mmol/L (135-145) 06/11/20 06:16 Potassium 4.1 mmol/l (3.3-5.1) 06/11/20 06:16 Chloride 106 mmol/L (96-108) 06/11/20 06:16 Carbon Dioxide 26 mmol/L (22-29) 06/11/20 06:16 Anion Gap 10 (12-20) L 06/11/20 06:16 BUN 7 mg/dL (9-16) L D 06/11/20 06:16 Creatinine 0.67 mg/dL (0.5-1.4) 06/11/20 06:16 Estim Creat Clear Calc 80.9 06/11/20 06:16 Estimated GFR > 60 06/11/20 06:16 Fasting Glucose 110 mg/dL (60-99) H 06/11/20 06:16 Calcium 8.6 mg/dL (8.4-10.2) D 06/11/20 06:16 COVID-19 (DON) Negative (Negative) 06/10/20 08:45 COVID-19 Clin Com See Note 06/10/20 08:45 Blood Type A Positive 06/10/20 09:03 Antibody Screen NEGATIVE 06/10/20 09:03 Discharge Plan Discharge Patient Disposition: Home, Self-Care Referrals: Olga Lidia Hess MD [Physician] - 06/17/20 (appointment time 3:45 PM) Mone Guerra NP [Primary Care Provider] - Discharge Medications: New oxycodone 5 mg Tablet 5 mg PO Q4H PRN (Reason: Pain, Moderate (Pain Scale 4-6) Qty: 10 RF: 0 Continued alprazolam 0.5 mg Tablet 0.5 mg PO BID PRN (Reason: Anxiety) Qty: 60 RF: 3 Discharge Orders: Discharge Order (Routine); Ordered 06/14/20 Ordered By: Olga Lidia Hess Diet: other Activity on Discharge: No heavy lifting Activity Restrictions/Additional Instructions: If the incision area is tender, you may apply an ice pack for short intervals (No more than 20 minutes on, followed by at least 20 minutes off). Do not apply heat. Do not use creams, lotions, or topical antibiotics unless instructed to do so by your surgeon. These can cause infection or allergic reaction. Ok to shower. You have shreya closing your incision and these will be removed approximately 10-14 days after surgery. Change dressing as needed. Once your incision no longer has drainage, you can discontinue dressings. Call Your Doctor If: -Your temperature exceeds 101.5? F -You experience excessive pain or swelling -You have an unexpected reaction to medication -You have excessive bleeding -You experience continued vomiting/nausea -Your incision begins to separate -Your incision shows signs of infection such as increased redness, swelling, excessive pain, drainage (light blood or clear fluid is normal) or heat Visit Report Forms: Patient Portal Discharge page Care Plan Goals: Return to baseline activity. Health Concerns: Sigmoid CA, s/p sigmoid resection with loop ileostomy in place, now s/p ileostomy reversal Plan of Treatment: Advance diet, pain control
--- NOTE | 2020-06-14 10:46 | MHC.CM.PN ---
PATIENT IS DISCHARGED HOME - SELF CARE. RN AWARE OF PLAN. FAMILY TO PROVIDE TRANSPORTATION.
== END 2020-06-14 10:45 | disposition home or self-care (01) | DRG 223 ==
LOC: HO.SSSA 09:22 → HO.S3 15:47
PROVIDERS: Admitting Provider Surgery; PCP Nurse Practitioner Family; Visit Provider Surgery
PROC: (CPT 44620; principal; 2020-06-10 10:30)
DX: Z43.2 Encounter for attention to ileostomy (principal); F17.210 Nicotine dependence, cigarettes, uncomplicated; Z20.828 Contact with and (suspected) exposure to other viral communicable diseases; Z71.6 Tobacco abuse counseling; Z88.0 Allergy status to penicillin
CPT/HCPCS: 36415; 80048; 85027; 86850; 86900; 86901; 87635; 88304; 88307; 99024; J0131; J1100; J1170; J1580; J2250; J2370; J2405; J3010

== ENCOUNTER → 2020-06-17 11:28 | Outpatient (BNVA) | payer BC, SELFPAY | PROVIDERS: PCP Nurse Practitioner Family; Referring Provider Nurse Practitioner Family; Visit Provider Surgery | DX: Z76.89 Persons encountering health services in other specified circumstances (principal) ==

== ENCOUNTER → 2020-07-07 08:49 | Outpatient (BNVA) | payer BC, SELFPAY | PROVIDERS: PCP Nurse Practitioner Family; Referring Provider Nurse Practitioner Family; Visit Provider Surgery | DX: Z76.89 Persons encountering health services in other specified circumstances (principal) ==

== ENCOUNTER → 2020-07-28 09:36 | Outpatient (BNVA) | payer BC, SELFPAY | PROVIDERS: PCP Nurse Practitioner Family; Visit Provider Surgery | DX: Z76.89 Persons encountering health services in other specified circumstances (principal) ==

== ENCOUNTER → 2020-08-27 10:13 | Outpatient (BNVA) | payer BC, SELFPAY | PROVIDERS: PCP Nurse Practitioner Family; Visit Provider Surgery ==

== ENCOUNTER 2020-09-11 07:34 | Day surgery (SDC) | payer BC, SELFPAY ==
[2020-09-04 14:04] VITALS: BMI 20.5
--- NOTE | 2020-09-10 10:17 | HO.ANESPROP2 ---
Documented by User: Jazmin Rand 09/10/20 10:19 HPI - Anesthesia Eval Consult details Narrative: 60yo F for Colonoscopy h/o sigmoid colon ca - chemo last 04/2020, s/p ileostomy and reversal PMFSH Active Problems Active Problems: All Active Problems (Updated 08/27/20 @ 13:03 by Ky Wong MD) Status post reversal of ileostomy (Acute) Cancer of sigmoid colon (Acute) Episode of shaking (Acute) Ileostomy in place (Acute) Past Medical History Medical History Anemia Cancer of sigmoid colon Diverticulitis GI bleed History of anxiety History of chemotherapy History of neuropathy History of tremor Hx of fracture Hx of shortness of breath Small bowel obstruction Wears partial dentures Surgical History Surgical History H/O colonoscopy History of colon resection History of ileostomy History of reversal of ileostomy Social History Social History Household Members: Family Housing: House Alcohol intake: former Smoking Status: Former smoker Packs Per Day: 1 Cigarettes Per Day: 20.0 Years Smoked: 44 Smoking Quit Date: 2019 Use of substances other than those prescribed or required for medical reasons: Yes Substance Use Type: Marijuana Substance Use Frequency: Occasionally Advance Directives: Yes Advance Directives Information Provided: Yes Advance Directives on File: Yes Advance Directives Date on File: 12/23/19 service: No Current occupational status: other Meds Allergies Allergy/AdvReac Type Severity Reaction Status Date / Time Penicillins [PENICILLINS] Allergy Intermediate Difficulty Verified 07/07/20 08:59 Breathing Exam Exam Date and Time: September 10, 2020 1017 Height,Weight and Vital Signs: Height 5 ft 6 in Weight 57.606 kg Pertinent Lab Results Pertinent Lab Results: Laboratory Tests 06/11/20 06/11/20 06:16 06:16 WBC 10.9 H Hgb 11.4 L Hct 33.6 L Plt Count 298 D Sodium 138 Potassium 4.1 Chloride 106 BUN 7 L D Creatinine 0.67 Assessment and Plan Assessment Anesthesia Assessment: Chart Reviewed Documented by User: Smita Reyes 09/11/20 08:30 PMFSH Past Medical History Medical History Anemia Cancer of sigmoid colon Diverticulitis GI bleed History of anxiety History of chemotherapy History of neuropathy History of tremor Hx of fracture Hx of shortness of breath Small bowel obstruction Wears partial dentures Surgical History Surgical History H/O colonoscopy History of colon resection History of ileostomy History of reversal of ileostomy Social History Social History Household Members: Family Housing: House Alcohol intake: former Smoking Status: Former smoker Packs Per Day: 1 Cigarettes Per Day: 20.0 Years Smoked: 44 Smoking Quit Date: 2019 Use of substances other than those prescribed or required for medical reasons: Yes Substance Use Type: Marijuana Substance Use Frequency: Occasionally Advance Directives: Yes Advance Directives Information Provided: Yes Advance Directives on File: Yes Advance Directives Date on File: 12/23/19 service: No Current occupational status: other Meds Allergies Allergy/AdvReac Type Severity Reaction Status Date / Time Penicillins [PENICILLINS] Allergy Intermediate Difficulty Verified 07/07/20 08:59 Breathing Exam Airway Mallampati Class: II TM Dist: >3cm Neck ROM: Full Partial: Upper Loose/Missing/Broken Teeth: No Heart: RRR Lungs: CTA Assessment and Plan Assessment Anesthesia Assessment: Anesthesia Plan Discussed and Chart Reviewed Final Anesthetic Review NPO: Yes ASA Class: II Final Preanesthetic Review: Meds/Allgs Chart Reviewed, Consent Obtained/Reviewed and Anes Risks/Benef Reviewed Patient Risk: Low Procedure Risk: Low Anesthetic Plan Anesthetic Plan: MAC: Disposition: Standard PACU
[2020-09-11 08:05] VITALS: BP 99/67; PULSE 88; RESP 16; TEMP 36.3; O2SAT 99
[2020-09-11] MEDS: Lactated Ringers 1,000 ML 100 ML IVCONT (08:11)
[2020-09-11 09:20] VITALS: BP 93/54; PULSE 76; RESP 15; TEMP 36.2; O2SAT 98
--- NOTE | 2020-09-11 09:28 | PM.OP ---
Brief Operative Note Date of Service: 09/11/20 Pre-op diagnosis: Screening Post-op diagnosis: other (Same, Diverticulosis, Internal/External hemorrhoids) Procedure: Colonoscopy to the cecum Surgeon: Wilfredo Avila Anesthesia: MAC Estimated blood loss (mL): 0 Pathology: none sent Condition: stable Disposition: PACU
[2020-09-11 09:35] VITALS: BP 100/56; PULSE 78; RESP 16; TEMP 36.2; O2SAT 97
--- NOTE | 2020-09-11 09:51 | OP_ITS ---
SURGEON: Wilfredo Avila MD INDICATIONS: The patient presents for evaluation of her previous history of colon cancer, and colorectal cancer screening. Full consent has been obtained from her for this, including risks of bleeding and perforation. PREOPERATIVE DIAGNOSIS: POSTOPERATIVE DIAGNOSIS: PROCEDURE PERFORMED: Colonoscopy to the cecum. ESTIMATED BLOOD LOSS: COMPLICATIONS: ANESTHESIA: Monitored anesthesia care. ASSISTANTS: SPECIMENS: PREOPERATIVE DIAGNOSES: Personal history of colon cancer and colorectal cancer screening. POSTOPERATIVE DIAGNOSES: Personal history of colon cancer, colorectal cancer screening, diverticulosis, and internal hemorrhoids. DESCRIPTION OF PROCEDURE: The patient was placed in the left lateral decubitus position. The digital rectal exam revealed some external hemorrhoids. The Olympus video pediatric colonoscope was entered into the rectum and advanced to the cecum with the assistance of abdominal wall pressure. Once in the cecum I did identify normal-appearing cecal pouch with appendiceal orifice and a normal-appearing ileocecal valve. There was transillumination of light deep in the right lower quadrant. The entire cecum was well visualized and appeared normal. The scope was slowly withdrawn assessing all mucosal surfaces carefully. Preparation was very good throughout the colon although there were some areas of some liquid stool, which were irrigated and removed as best as possible. I did not visualize any sign of polyps, colitis, or angiodysplasia. There was a mild amount of diverticulosis in the descending colon. The anastomosis from her previous surgery was very low at approximately 5 cm. This appeared normal. There were some retained shreya noted. I was able to retroflexed visualizing the distal rectum, which appeared normal other than internal hemorrhoids. The scope was straightened and withdrawn from the patient. She tolerated the procedure well and was returned to recovery area in stable condition. IMPRESSION: 1. Internal and external hemorrhoids. 2. Diverticulosis. PLAN: The patient should have a repeat colonoscopy in 1 year for further screening and surveillance given her previous history. She was advised to use some fiber supplements on a regular basis to see if that can help improve the regularity of her bowel movements. MD JEFF Lauren/RUBI / [id number]
== END 2020-09-11 10:15 | disposition home or self-care (01) ==
PROVIDERS: PCP Internal Medicine; Visit Provider Internal Medicine
PROC: 0DJD8ZZ Inspection of Lower Intestinal Tract, Via Natural or Artificial Opening Endoscopic (ICD-10-PCS; CPT 45378; principal; 2020-09-11 09:00)
DX: Z12.11 Encounter for screening for malignant neoplasm of colon (principal); Z85.038 Personal history of other malignant neoplasm of large intestine; Z92.21 Personal history of antineoplastic chemotherapy; K57.30 Diverticulosis of large intestine without perforation or abscess without bleeding; K64.8 Other hemorrhoids; K64.4 Residual hemorrhoidal skin tags; R19.8 Other specified symptoms and signs involving the digestive system and abdomen; D64.9 Anemia, unspecified; Z98.0 Intestinal bypass and anastomosis status; Z90.49 Acquired absence of other specified parts of digestive tract; F12.90 Cannabis use, unspecified, uncomplicated; Z87.891 Personal history of nicotine dependence; Z79.899 Other long term (current) drug therapy; Z88.0 Allergy status to penicillin
CPT/HCPCS: 45378

== ENCOUNTER 2020-11-18 08:40 | Outpatient (REF) | payer BC, SELFPAY ==
--- NOTE | 2020-11-18 08:43 | EMG_ITS ---
This is a 60-year-old woman, who had surgery for colon cancer with some pelvic extension in January of 2020. Shortly after that, she noted some numbness in the 3rd toes bilaterally. It is difficult for her to be on her feet for a long because the feet hurt and the numbness is persistent. She has no back pain. PHYSICAL EXAMINATION: On examination, she is alert and oriented with normal intellectual functions. Cranial nerves II through XII are normal. Muscle tone and strength are normal in all 4 extremities. Reflexes symmetrical. IMPRESSION: Rule out peripheral neuropathy, rule out nerve impingement. Nerve conduction EMG study: Generally normal motor and sensory nerve conduction velocities in the lower extremities except for low amplitudes of the sensory action potentials that may suggest very early sensory neuropathy. Clinical correlation is suggested. MD FRANCHESKA Carter/RUBI / [id number]
== END 2020-11-18 08:41 | disposition home or self-care (01) ==
LOC: HO.NEURO 08:40
PROVIDERS: Visit Provider Nurse Practitioner Family
DX: R20.0 Anesthesia of skin (principal); R20.2 Paresthesia of skin
CPT/HCPCS: 95885; 95913

== ENCOUNTER 2021-01-08 08:22 | Outpatient (REF) | payer BC, SELFPAY ==
--- NOTE | ~2021-01-08 | MM_ITS ---
EXAMINATION: MM SCREENING DIGITAL BREAST TOMOSYNTHESIS, BILATERAL CLINICAL INFORMATION: Screening. Asymptomatic. The lifetime risk of breast cancer based on the Tyrer-Cuzick Model is 7.7%. COMPARISON: Mammography: None. TECHNIQUE: Digital breast tomosynthesis is performed in both the craniocaudal and mediolateral oblique views along with computer-aided detection (CAD). Synthesized 2D images are generated from the tomosynthesis. FINDINGS: There are scattered areas of fibroglandular density (ACR BI-RADS breast composition Category b). No abnormal dominant mass or suspicious grouping of microcalcifications seen within the left breast. Within the right adnexa, there is a 3 mm irregularly marginated density which spot compression view and possible ultrasound is recommended. Within the lateral aspect of the right breast, approximately 5 cm from nipple, there is a circumscribed 5 x 4 mm density for which spot compression film and ultrasound is recommended. MM/MM tomosynthesis screening BI IMPRESSION: Right breast findings for which further evaluation is suggested. ASSESSMENT: BI-RADS 0: Incomplete - Need Additional Imaging Evaluation RECOMMENDATION: 1. Additional views of the right breast. 2. Targeted ultrasound if warranted after review of the additional views. 3. Radiology department staff will contact the patient for additional imaging. This patient's information was entered into a reminder system with a target due date for their next mammogram.
== END 2021-01-08 08:23 | disposition home or self-care (01) ==
LOC: HO.MAMMO 08:22
PROVIDERS: Visit Provider Internal Medicine
DX: Z12.31 Encounter for screening mammogram for malignant neoplasm of breast (principal)
CPT/HCPCS: 77063; 77067

== ENCOUNTER 2021-01-28 08:25 | Outpatient (REF) | payer BC, SELFPAY ==
[2021-01-29 11:35] LABS: BV Int Neg Control Negative (Negative)
[2021-01-29 11:36] LABS: BV Int Pos Control Positive (Positive)
[2021-01-29 11:47] LABS: CT PCR NOT DETECTED (Not Detect.); NG PCR NOT DETECTED (Not Detect.)
[2021-02-01 23:22] LABS: HPV mRNA E6/E7 rflx Not Detected (Not Detected)
== END 2021-01-28 08:26 | disposition home or self-care (01) ==
LOC: HO.LAB 08:25
PROVIDERS: PCP Internal Medicine; Visit Provider Advanced Practice Midwife
DX: Z01.419 Encounter for gynecological examination (general) (routine) without abnormal findings (principal); Z11.3 Encounter for screening for infections with a predominantly sexual mode of transmission; Z11.51 Encounter for screening for human papillomavirus (HPV); C18.7 Malignant neoplasm of sigmoid colon; Z20.2 Contact with and (suspected) exposure to infections with a predominantly sexual mode of transmission
CPT/HCPCS: 87480; 87491; 87510; 87591; 87624; 87660; 88142

== ENCOUNTER 2021-02-04 12:51 | Outpatient (REF) | payer BC, SELFPAY ==
--- NOTE | ~2021-02-04 | MM_ITS ---
EXAMINATION: MM DIAGNOSTIC DIGITAL BREAST TOMOSYNTHESIS, RIGHT US DIAGNOSTIC ULTRASOUND BREAST, RIGHT CLINICAL INFORMATION: Recall from new baseline exam for 2 findings right breast: Nodular asymmetry 9:30 o'clock position and smaller nodule overlying right axilla on MLO view. No known family history breast cancer. TC score 8%. COMPARISON: Mammography: 01/08/2021 (new baseline). TECHNIQUE: Digital breast tomosynthesis is performed. 2D images are generated from the tomosynthesis. The following views are obtained: ML, spot CC, spot MLO x3 with dermal marker. Ultrasound right breast is targeted to the outer aspect. Grayscale imaging and color Doppler are performed without and with harmonics. FINDINGS: There are scattered areas of fibroglandular density (ACR BI-RADS breast composition Category b). The small nodular density overlying the right axilla corresponds to a skin tag, confirmed on additional views today with dermal marker. The 5 mm nodule 9:30 o'clock position approximately 4 cm from nipple with smooth partly obscured margins. Ultrasound right breast demonstrates a circumscribed hypoechoic nodule 9:00 position 5 cm from nipple measuring approximately 5 x 4 mm. There is some scattered internal color flow consistent with solid lesion. There is no increased or decreased through transmission of sound. Results are discussed with the patient at time of visit. The small nodule right breast is circumscribed and benign appearing, possibly old fibroadenoma. Chronicity is uncertain as patient has only recent new baseline. Management plan is for short interval follow-up to confirm stability. MM/MM tomosynthesis added views R IMPRESSION: 1. Circumscribed probable benign 0.5 cm nodule 9:00 position right breast approximately 5 cm from nipple. 2. Incidental skin tag overlying right axilla corresponding to finding on recent screening mammography right MLO view. ASSESSMENT: BI-RADS 3: Probably Benign RECOMMENDATION: Diagnostic right mammography and targeted right breast ultrasound for the probable benign nodule 9:00 position, to be performed in 6 months. This patient's information was entered into a reminder system with a target due date for their next mammogram.
== END 2021-02-04 12:52 | disposition home or self-care (01) ==
LOC: HO.MAMMO 12:51
PROVIDERS: Visit Provider Internal Medicine
DX: R92.2 Inconclusive mammogram (principal)
CPT/HCPCS: 76642; 77061; 77065

== ENCOUNTER 2021-05-11 08:53 | Outpatient (REF) | payer BC, SELFPAY ==
--- NOTE | ~2021-05-11 | CT_ITS ---
EXAMINATION: CT ABDOMEN AND PELVIS WITH CONTRAST CLINICAL INFORMATION: History of colon cancer stage III. Rising CA level. COMPARISON: CT abdomen and pelvis 02/03/2020. TECHNIQUE: Multidetector volumetric images were obtained from the superior aspect of the liver through the pubic symphysis following administration 85 mL of Omnipaque 350 intravenous contrast. Sagittal and coronal reformatted images were obtained on the technologist's workstation. Oral contrast: No This CT examination was performed using dose optimization techniques as appropriate, variously including the following: *Automated exposure control *Adjustment of mA and/or kV according to patient size (this includes techniques or standardized protocols for targeted exams where dose is matched to indication/reason for exam; i.e. extremities or head) *Use of iterative reconstruction technique DLP: 369 mGy-cm FINDINGS: LUNG BASES: Minimal right basal atelectasis seen. The heart size is normal. LIVER, GALLBLADDER, AND BILIARY TREE: The liver is normal in size, shape, and attenuation. No focal hepatic lesion or biliary ductal dilatation is present. The gallbladder is unremarkable with no evidence of radiopaque gallstones, gallbladder wall thickening, or obvious pericholecystic inflammatory changes. PANCREAS: Unremarkable. SPLEEN: Unremarkable. ADRENAL GLANDS: There is a left adrenal hypodense lesion measuring 1.1 x 0.6 cm. The right adrenal gland is normal. KIDNEYS AND URETERS: The kidneys are normal in size, shape, and attenuation. No hydronephrosis, hydroureter, or calculi seen. No perinephric stranding. BLADDER: Unremarkable. GASTROINTESTINAL TRACT: Oral contrast-opacified colon is normal caliber. There are postsurgical changes in the sigmoid colon with widely patent lumen. The contrast-opacified distal small bowel is normal caliber. The rest of the small bowel is unremarkable. Appendix is normal caliber. No free air or free fluid seen. ABDOMINAL WALL: No significant hernia is appreciated. LYMPH NODES: Normal. VASCULAR: Unremarkable. PELVIC VISCERA: The uterus is retroverted. There is no adnexal mass or free fluid. OSSEOUS STRUCTURES: No lytic or sclerotic process seen. CT/CT abdomen pelvis w con IMPRESSION: Anastomotic suture line along the sigmoid colon with patent lumen. No recurrent mass. No abnormal lymphadenopathy. Mild constipation. Left adrenal 1.1 cm lesion, stable.
--- NOTE | ~2021-05-11 | CT_ITS ---
EXAMINATION: CT CHEST WITH CONTRAST CLINICAL INFORMATION: Colon cancer. Increasing CEA. COMPARISON: Previous chest CT scans most recent April 2020 TECHNIQUE: Multidetector volumetric CT imaging of the chest was obtained after the administration of 85 mL of Omnipaque 350 intravenous contrast without immediate adverse reactions. Axial MIP volume rendering provided. Sagittal and coronal reformatted images were obtained. This CT examination was performed using dose optimization techniques as appropriate, variously including the following: *Automated exposure control *Adjustment of mA and/or kV according to patient size (this includes techniques or standardized protocols for targeted exams where dose is matched to indication/reason for exam; i.e. extremities or head) *Use of iterative reconstruction technique DLP: 100 mGy-cm FINDINGS: LUNGS: There is interval increase in size and number of the bilateral nodules. Largest right pulmonary nodules measure 0.7 x 1.2 cm axial image 195 series 7 compared to 3 x 5 mm axial image 183 series 7 on prior exam in the anterior segment of the right upper lobe and a cavitary nodule in the posterior segment of the right upper lobe measuring 0.9 x 1.1 cm axial image 205 series 7 which is new. Largest left pulmonary nodule is a cavitary nodule in the left upper lobe measuring 1.6 cm axial image 219 series 7 compared to 0.8 cm axial image 202 series 04/29/2020 exam. MEDIASTINUM: There are small mediastinal and hilar lymph nodes that are stable. The mediastinum is otherwise normal. PLEURA: There is no pleural effusion. No pleural mass or thickening. AXILLA: No lymphadenopathy. 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 Bony structures are otherwise unremarkable. CT/CT chest w con IMPRESSION: Interval increase in size and number of bilateral pulmonary nodules.
[2021-05-11] MEDS: iohexoL 350 MG/ML 100 ML INFUS..BTL 85 ML IV (12:48)
== END 2021-05-11 08:54 | disposition home or self-care (01) ==
LOC: HO.CT 08:53
PROVIDERS: Visit Provider Internal Medicine Medical Oncology
DX: Z85.038 Personal history of other malignant neoplasm of large intestine (principal)
CPT/HCPCS: 71260; 74177; Q9967

== ENCOUNTER → 2021-05-21 09:53 | Outpatient (BNVA) | payer BC, SELFPAY | PROVIDERS: PCP Internal Medicine; Visit Provider Surgery | DX: R91.8 Other nonspecific abnormal finding of lung field (principal); C18.7 Malignant neoplasm of sigmoid colon; Z79.899 Other long term (current) drug therapy; Z87.891 Personal history of nicotine dependence; Z92.21 Personal history of antineoplastic chemotherapy | CPT/HCPCS: 99212 ==

== ENCOUNTER → 2021-06-11 09:48 | Outpatient (BNVA) | payer BC, SELFPAY | PROVIDERS: PCP Internal Medicine; Visit Provider Surgery | DX: R91.8 Other nonspecific abnormal finding of lung field (principal); C18.7 Malignant neoplasm of sigmoid colon; Z79.899 Other long term (current) drug therapy; Z92.21 Personal history of antineoplastic chemotherapy | CPT/HCPCS: 99212 ==

== ENCOUNTER 2021-06-29 09:04 | Outpatient (REF) | payer BC, SELFPAY ==
--- NOTE | ~2021-06-29 | PE_ITS ---
EXAMINATION: Fluorine-18 FDG PET/CT Scan CLINICAL INDICATION: Initial treatment management. Pulmonary nodule. PROCEDURE: 57 minutes following the intravenous administration of 15.3 mCi of fluorine 18 FDG, images from the base of the skull to the mid thighs were obtained using a combined PET/CT scanner with CT scan based attenuation correction. No oral contrast was administered. No intravenous contrast was administered. Transverse, coronal, sagittal, and volume reconstruction projections were obtained. The patient's blood glucose as determined by a finger stick, was 86 mg/dl immediately prior to injection. Total CT exam dose-length product 485.48 mGy-cm * These CT images were obtained using dose optimization techniques as appropriate, variously including the following: Automated exposure control * Adjustment of mA and/or kV according to patient size (this includes techniques or standardized protocols for targeted exams where dose is matched to indication/reason for exam; i.e. extremities or head) * Use of iterative reconstruction technique COMPARISON: No previous PET/CT scan is available for comparison. The diagnostic CT scan of the chest, abdomen, and pelvis, dated 05/11/2021, is available for comparison. Several less recent CT scans of the abdomen and pelvis dating back to 12/12/2019 are also available for comparison. FINDINGS: (Slice numbers described in this report are numbered superiorly to inferiorly with slice #1 in the head) NECK AND VISUALIZED HEAD: No foci of abnormal FDG activity are noted. The distribution of FDG activity is physiological. There is no cervical lymphadenopathy. THORAX: Multiple FDG avid pulmonary nodules are present bilaterally. Most prominent of these is in the base of the left upper lobe abutting the lateral aspect of the interlobar fissure showing SUVmax 4.5, slice 80/267. On the CT images this measures 2.0 x 1.7 cm in largest transverse dimensions, and approximately 2.1 cm cephalocaudad. Most prominent FDG avid nodule in the right lung is in the medial inferior aspect of the right upper lobe and shows SUVmax 4.9, slice 76/267 and measures 1.3 x 1.0 cm in largest transverse dimensions and approximately 1.4 cm cephalocaudad. There is a weakly FDG avid lateral subpleural 0.9 cm nodule in the right lung apex, slice 58/267 and another in the medial base of the right upper lobe just anterior to the interlobar fissure measuring 1.3 x 1.1 cm in largest transverse dimensions, slice 77/267. This lesion shows significant central necrosis or cavitation. The appearance of these lesions is not significantly changed from the diagnostic CT scan dated 05/11/2021. No additional foci of abnormal FDG activity are present in the chest. There is no mediastinal, supraclavicular, or axillary lymphadenopathy. There is no pleural or pericardial fluid, or pneumothorax. ABDOMEN AND PELVIS: There is an FDG avid hypodensity medially in liver Couinaud segment 6 showing S SUVmax 8.6, slice 132/267. The corresponding hypodensity on the CT images measures 2.2 x 1.9 cm in largest transverse dimensions, and approximately 1.8 cm cephalocaudad. No other liver abnormalities are noted. The gallbladder, spleen, kidneys, and pancreas are unremarkable. A subcentimeter hypodensity in the left adrenal gland, slice 129/267 shows no abnormal FDG activity and is likely benign. This subcentimeter hypodensity does not appear significantly changed from the earliest available CT scan dated 12/12/2019. The adrenal glands are otherwise unremarkable. There is a mildly FDG avid 1.0 x 0.7 cm left para-aortic retroperitoneal lymph node, and SUVmax 3.1, slice 151/267. There is an additional FDG avid 1.5 x 1.2 cm left common iliac lymph node, SUVmax 4.5, slice 175/267. There is mild FDG activity throughout the gastrointestinal tract without a suspicious focal component. There is a suture line in the distal ileum, just proximal to the ileocecal valve and this does not show more prominently increased FDG activity, with adjacent luminal activity similar to the intensity throughout most of the large bowel. There is no additional retroperitoneal, mesenteric, pelvic or inguinal lymphadenopathy. MUSCULOSKELETAL: No foci of abnormal FDG activity are present in the osseous structures. There are mild degenerative changes in the spine but no suspicious sclerotic or lytic lesions are visualized. VASCULAR: Vascular calcifications are noted, most prominently in the distal aorta and proximal common iliac arteries. PET/PET CT fusion skull to thigh IMPRESSION: Multiple FDG avid pulmonary nodules of varying intensities are noted as described above, most consistent with malignant lesions. These may all represent metastases, or the largest lesion may represent a primary pulmonary malignancy. An FDG avid hepatic hypodensity is most consistent with a metastasis. Several FDG avid retroperitoneal and left common iliac lymph nodes are most consistent with additional metastases.
== END 2021-06-29 09:05 | disposition home or self-care (01) ==
LOC: HO.PET 09:04
PROVIDERS: PCP Internal Medicine; Visit Provider Surgery
DX: Z13.89 Encounter for screening for other disorder (principal)

== ENCOUNTER 2021-07-02 06:55 | Day surgery (SDC) | payer BC, SELFPAY ==
--- NOTE | ~2021-07-02 | IR_ITS ---
PROCEDURE: IR INSERTION OF TUNNEL CATHETER CLINICAL INFORMATION: Metastatic colon cancer. COMPARISON: None TECHNIQUE: Procedure and risks and benefits including bleeding, infection and pneumothorax were discussed with the patient, and informed consent was obtained. All elements of maximal sterile barrier technique followed including use of cap, mask, sterile gown, sterile gloves, a sterile full body drape and hand hygiene. Also followed skin preparation with 2% chlorhexidine for cutaneous antisepsis, and sterile ultrasound preparation with sterile gel and probe cover when applicable. The right neck and chest were prepped and draped in the usual sterile fashion. The skin and soft tissues of the right lower neck were anesthetized with 1% lidocaine with epinephrine. A small incision was made. Using ultrasound guidance and a 5-Cuban micropuncture system, right internal jugular vein access was obtained. Over an .018 wire, a 5-Cuban dilator was positioned in the SVC. The skin and soft tissues of the right upper anterior chest were anesthetized with 1% lidocaine with epinephrine. A small incision was made. Using blunt dissection, a subcutaneous pocket was created. A subcutaneous tunnel from the chest to the neck incision was anesthetized with 1% lidocaine with epinephrine. Using a tunneler, a 6.6-Cuban single-lumen catheter was tunneled from the chest to the neck incision. The catheter was attached to the port. The port was positioned in the subcutaneous pocket and secured using two 2-0 nonabsorbable sutures. An .035 guidewire was advanced through the 5-Cuban dilator into the IVC. The 5-Cuban dilator was exchanged for a 7-Cuban peel-away sheath. Using bent wire technique, catheter length was estimated and the catheter was cut. Catheter length is 20 cm. The catheter was fed through the peel-away sheath. The neck incision was closed using a 4-0 absorbable subcuticular suture. The chest incision was closed using four 3-0 absorbable interrupted sutures followed by a running absorbable 4-0 subcuticular suture. The port was accessed. The port had good blood return, flushed easily and was instilled with heparin 5 mL of 100 unit per mL solution. Real-time ultrasound guidance was used to document vein patency and for needle entry. A formal ultrasound picture was recorded. The patient received Versed 1 mg and fentanyl 50 mcg intravenously during the procedure and clindamycin 600 mg IV. Total sedation time was 40 minutes. Fluoroscopy time 0.4 minutes. DAP 19 cGy-cm2. 1 saved fluoroscopic image. FINDINGS: There is a right internal jugular Port-A-Cath with tip projecting over the cavoatrial junction. IR/IR cvc insert tunnel w prt/loss prevention leader IMPRESSION: Right internal jugular 6.6-Cuban single-lumen Dignity Port-A-Cath placement.
[2021-07-02 07:04] VITALS: BMI 21.3
[2021-07-02 07:23] LABS: MANUAL DIFF FLAG NO
[2021-07-02 07:25] LABS: Basophils Absolute Auto 0.1 X10*3/uL (0.0-0.2); Basophils Percent Auto 0.9 % (0-2); Eosinophils Absolute Auto 0.2 X10*3/uL (0.0-0.4); Eosinophils Percent Auto 2.4 % (0-4); Hematocrit 39.5 % (37.0-47.0); Hemoglobin 13.2 g/dl (12.0-16.0); Imm Gran Abs Auto 0.04 X10*3/uL (0.00-0.03); Imm Gran Pct Auto 0.4 % (0.0-0.4); Lymphocytes Absolute Auto 2.6 X10*3/uL (1.2-4.9); Lymphocytes Percent Auto 28.3 % (20-40); Mean Corpuscular HGB Conc 33.4 g/dl (31.0-35.0); Mean Corpuscular Hemoglobin 31.4 pg (27.0-33.0); Mean Platelet Volume 9.8 fL (9.4-12.3); Monocytes Absolute Auto 0.8 X10*3/uL (0.1-1.2); Monocytes Percent Auto 8.6 % (2-11); Neutrophils Absolute Auto 5.6 x10*3/uL (2.0-8.3); Neutrophils Percent Auto 59.4 % (45-73); Platelet Count 294 X10*3/uL (160-400); Red Cell Distribution Width 12.2 % (11.0-16.0); White Blood Count 9.3 X10*3/uL (4.8-10.8)
[2021-07-02 07:52] LABS: INTERNATIONAL NORM RATIO 0.9 (0.9-1.1); Prothrombin Time 9.9 SEC (9.9-13.0)
[2021-07-02 07:55] LABS: Partial Thromboplastin Time 31.5 SEC (24.1-38.0)
[2021-07-02 08:13] LABS: Glucose, Whole Blood 92 mg/dL (60-115)
[2021-07-02] MEDS: Lidocaine HCl 1 % MPF 5 ML VIAL SUBCUT (09:38)
[2021-07-02 10:10] VITALS: BP 108/56; PULSE 80; RESP 16; TEMP 36.9; O2SAT 98
[2021-07-02 10:25] VITALS: BP 104/46; PULSE 85; RESP 16; O2SAT 98
[2021-07-02 10:40] VITALS: BP 111/61; PULSE 80; RESP 16; O2SAT 98
--- NOTE | 2021-07-02 10:51 | HO.RADPN ---
RADIOLOGY Narrative Narrative: Right IJ 6.6 fr single lumen portacath placed. Tip in SVC.
[2021-07-02 10:55] VITALS: BP 112/67; PULSE 82; RESP 16; O2SAT 96
[2021-07-02 11:10] VITALS: BP 112/57; PULSE 83; RESP 16; TEMP 36.8; O2SAT 95
== END 2021-07-02 12:22 | disposition home or self-care (01) ==
PROVIDERS: Radiology Diagnostic Radiology; PCP Internal Medicine; Visit Provider Radiology Diagnostic Radiology
DX: Z45.2 Encounter for adjustment and management of vascular access device (principal); C78.00 Secondary malignant neoplasm of unspecified lung; C78.7 Secondary malignant neoplasm of liver and intrahepatic bile duct; C77.2 Secondary and unspecified malignant neoplasm of intra-abdominal lymph nodes; C18.7 Malignant neoplasm of sigmoid colon; Z92.21 Personal history of antineoplastic chemotherapy; Z87.891 Personal history of nicotine dependence; Z79.899 Other long term (current) drug therapy; Z88.0 Allergy status to penicillin
CPT/HCPCS: 36415; 36561; 82947; 85025; 85610; 85730; 99152; 99153; C1769; C1788; J1642; J2250; J3010; J3370

== ENCOUNTER 2021-08-31 13:12 | Outpatient (REF) | payer BC, SELFPAY ==
--- NOTE | ~2021-08-31 | MM_ITS ---
EXAMINATION: MM DIAGNOSTIC DIGITAL BREAST TOMOSYNTHESIS, RIGHT US DIAGNOSTIC ULTRASOUND BREAST, RIGHT CLINICAL INFORMATION: Short interval six-month follow-up probable benign circumscribed hypoechoic nodule 9:00 position right breast. TC score 10%. COMPARISON: Mammography: 02/04/2021, 01/08/2021 (BI-RADS 0, new baseline), ultrasound right breast 02/04/2021. TECHNIQUE: Digital breast tomosynthesis is performed in both the craniocaudal and mediolateral oblique views along with computer-aided detection (CAD). Synthesized 2D images are generated from the tomosynthesis. Ultrasound right breast is targeted to the outer quadrant. Grayscale imaging and color Doppler are performed without and with harmonics. FINDINGS: There are scattered areas of fibroglandular density (ACR BI-RADS breast composition Category b). Parenchymal pattern is similar to prior studies. Smooth nodule mid 9:00 position is stable. There is no developing density or interval architectural abnormality. Dermal lesion again seen overlying right axilla on MLO view. No abnormal calcifications. No significant changes. Ultrasound right breast demonstrates a stable circumscribed mildly hypoechoic nodule, long axis parallel with the skin. No internal color flow. No increased or decreased through transmission of sound. Nodule measures approximately 5 x 4 mm similar to prior exam. Results are provided to the patient at time of visit by the technologist. MM/MM tomosynthesis diagnostic RT IMPRESSION: Stable smooth circumscribed benign-appearing nodule 9:00 right breast. ASSESSMENT: BI-RADS 3: Probably Benign RECOMMENDATION: Diagnostic mammography at time of annual bilateral mammography, due in 6 months. This patient's information was entered into a reminder system with a target due date for their next mammogram.
== END 2021-08-31 13:13 | disposition home or self-care (01) ==
LOC: HO.MAMMO 13:12
PROVIDERS: Visit Provider Internal Medicine
DX: N63.15 Unspecified lump in the right breast, overlapping quadrants (principal)
CPT/HCPCS: 76642; 77061; 77065

== ENCOUNTER 2021-10-21 07:57 | Outpatient (REF) | payer BC, SELFPAY ==
--- NOTE | ~2021-10-21 | CT_ITS ---
EXAMINATION: CT CHEST WITH CONTRAST CT ABDOMEN AND PELVIS WITH CONTRAST CLINICAL INFORMATION: Lung metastases from colon cancer on chemotherapy. Restaging. COMPARISON: Multiple priors, including PET/CT from 06/29/[address] from 05/11/2021 . TECHNIQUE: Multidetector volumetric imaging was performed through the chest, abdomen and pelvis following the administration of oral and 85 mL of Omnipaque 350 intravenous contrast. Sagittal and coronal reformatted images were obtained on the technologist's workstation. Axial MIP volume rendering provided. This CT examination was performed using dose optimization techniques as appropriate, variously including the following: *Automated exposure control *Adjustment of mA and/or kV according to patient size (this includes techniques or standardized protocols for targeted exams where dose is matched to indication/reason for exam; i.e. extremities or head) *Use of iterative reconstruction technique DLP: 353 mGy-cm. FINDINGS: CHEST: Lungs: The central airways are patent. There is mild centrilobular emphysema which is greatest at the lung apices. No dense consolidation. No pleural effusion or pneumothorax. There were several pulmonary nodules on the previous PET/CT which were FDG avid. There are nodules again noted. 1. Subpleural right apical nodule measuring 0.7 cm on series 7 image 75. This is similar in size to prior PET. 2. Right upper lobe perihilar nodule anteriorly measuring 0.6 cm on image 182. This is decreased from prior, measuring 1.3 cm at that time. 3. Left upper lobe lateral nodule with central bronchograms. This measures 1.5 cm on image 207. This previously measured 1.9 cm. 4. There was an additional FDG avid nodule posteriorly in the right upper lobe which is also decreased, measuring 0.6 cm on image 199, compared to 1.2 cm on prior. No new pulmonary nodules. Mediastinum: The heart is of normal size. There is no pericardial effusion. Central vascular structures are unremarkable. No hilar or mediastinal lymphadenopathy. Chest Wall/Axilla: No lymphadenopathy. No chest wall mass. There is a right chest wall port in place. ABDOMEN/PELVIS: Liver, Gallbladder, Biliary Tree: The liver is normal in size, shape, and attenuation. No biliary ductal dilatation. The previously visualized FDG avid lesion in the right lobe of the liver is decreased in prominence. This measures 1.3 cm on series 3 image 25. Comparison to prior noncontrast PET/CT is limited, but this does appear decreased in size. There are no new liver lesions identified. The gallbladder is unremarkable with no evidence of radiopaque gallstones, gallbladder wall thickening, or pericholecystic inflammatory changes. Pancreas: Unremarkable. Spleen: Unremarkable. Adrenal Glands: The right adrenal gland is unremarkable. There is a 0.7 cm nodule in the left adrenal gland along the medial limb. This is unchanged. No abnormal FDG activity at this location. Kidneys and Ureters: The kidneys are normal in size, shape, and attenuation. No hydronephrosis, hydroureter or calculi seen. No perinephric stranding. Bladder: Decompressed with no gross abnormality. Gastrointestinal Tract: Small hiatal hernia. The stomach is otherwise unremarkable. Normal caliber small bowel. No obstruction. No colonic wall thickening or acute inflammation. Scattered diverticulosis without diverticulitis. No free air or free fluid. The appendix is unremarkable. Abdominal Wall: No hernia is demonstrated. Lymphovascular Structures: Lymph nodes: There is no lymphadenopathy. There was a previously FDG avid node along the left iliac chain which is without pathologic enlargement. Vascular: Normal caliber aorta with moderate calcific and noncalcific atherosclerotic plaque. Pelvic Viscera: The uterus and adnexa are unremarkable. OSSEOUS STRUCTURES: No acute or suspicious osseous abnormality. Mild degenerative changes of the spine. Mild degenerative changes in the hips. CT/CT abdomen pelvis w con IMPRESSION: Partial improvement from prior imaging. Multiple pulmonary nodules showing decrease in size. No new pulmonary nodule. Decreasing prominence of the hypoattenuating lesion in the right lobe of the liver. Decreased prominence of previous FDG avid left iliac lymph node. No new lymphadenopathy.
[2021-10-21] MEDS: iohexoL 350 MG/ML 100 ML INFUS..BTL IV (11:34)
[2021-10-21] MEDS: Barium Sulfate Oral (Vanilla) 450 ML ORAL.SUSP 900 ML PO (11:35)
== END 2021-10-21 07:58 | disposition home or self-care (01) ==
LOC: HO.CT 07:57
PROVIDERS: PCP Internal Medicine; Visit Provider Internal Medicine Medical Oncology
DX: C18.7 Malignant neoplasm of sigmoid colon (principal); R91.8 Other nonspecific abnormal finding of lung field
CPT/HCPCS: 71260; 74177; Q9967

== ENCOUNTER 2022-01-28 07:31 | Outpatient (REF) | payer BC, SELFPAY ==
--- NOTE | ~2022-01-28 | CT_ITS ---
EXAMINATION: CT CHEST WITH CONTRAST CT ABDOMEN AND PELVIS WITH CONTRAST CLINICAL INFORMATION: Follow up colon cancer. Follow-up lung metastases. COMPARISON: CT chest, abdomen and pelvis with contrast 10/21/2021. TECHNIQUE: 5 mm thin axial and reformatted 3 mm thin sagittal and coronal images of chest, abdomen and pelvis were obtained following IV 85 mL Omnipaque 350. DLP: 221 mGy-cm FINDINGS: CHEST: Lungs: The lungs are well-expanded without acute pneumonic process. There is 7 mm spiculated lesion right upper lobe axial image 78/5, same size as before, 2 mm subpleural nodule right upper lobe axial image 191/5 previously measured 1 mm. There is a spiculated lesion left upper lobe with central cavity formation measuring 1.5 x 1.1 cm, 7 mm nodule right lower lobe superior segment axial image 212/5, previously measured 5 mm. There are minimal dependent atelectatic changes in lung bases. Mediastinum: The thyroid lobes are symmetric and normal. The central trachea and the bronchi are widely patent. The heart size and great vessels are normal caliber. No pericardial effusion seen. No abnormal sized mediastinal or hilar lymph nodes seen. Pleura: There is no pleural thickening or effusion seen. Axilla: No abnormal axillary lymph nodes seen. There is a right lateral chest wall 6 mm lymph node on axial image 35/3. Osseous Structures: No lytic or sclerotic process seen. ABDOMEN AND PELVIS: Liver, Ducts and Gallbladder: There is a right hepatic hypodense 1.1 cm lesion medially, similar to previous study. No additional lesions seen. There is no intrahepatic ductal dilatation. The gallbladder is nondilated. Spleen: The spleen is mildly enlarged compared to previous exam. Pancreas: Unremarkable. Adrenal Glands: The right adrenal gland appears unremarkable. There is a left adrenal 8 mm hypodense nodule. Kidneys and Ureters: Both kidneys are normal size, shape and position. No radiopaque renal calculi or hydronephrosis seen. There is no perinephric stranding. Lymphovascular Structures: Abdominal aorta is normal caliber no aneurysmal dilatation seen. No abnormal retroperitoneal lymph nodes seen. GI Tract: There is a large amount of stool seen in the colon with significant constipation. The small bowel loops are normal caliber. There is annular suture line seen along the sigmoid colon with widely patent lumen. Appendix not visualized. No free fluid or free air. Pelvis: The uterus is retroverted. No adnexal mass or lymph nodes seen. No evidence of hernia. Osseous Structures: There are degenerative disc changes L3-L4, L2-L3 disc levels with mild ventral spondylosis. No aggressive lytic or sclerotic process seen. CT/CT abdomen pelvis w con IMPRESSION: Stable spiculated lesions and nodules as described above; there may be one nodule minimally prominent by 1 mm. No new pulmonary nodules. No abnormal mediastinal axillary lymphadenopathy. A 6 mm lateral chest wall nodule/lymph node is stable. Small hypodense nodule right hepatic lobe is stable. Left adrenal nodule is stable. Suspect mild splenomegaly, slightly increased in thickness. Significant constipation with widely patent anastomotic sigmoid site.
[2022-01-28] MEDS: iohexoL 350 MG/ML 100 ML INFUS..BTL IV (11:07)
[2022-01-28] MEDS: Barium Sulfate Oral (Berry) 450 ML ORAL.SUSP 900 ML PO (11:11)
== END 2022-01-28 07:32 | disposition home or self-care (01) ==
LOC: HO.CT 07:31
PROVIDERS: PCP Internal Medicine; Visit Provider Internal Medicine Medical Oncology
DX: C18.7 Malignant neoplasm of sigmoid colon (principal)
CPT/HCPCS: 71260; 74177; Q9967

== ENCOUNTER 2022-03-22 08:49 | Outpatient (REF) | payer BC, SELFPAY ==
--- NOTE | ~2022-03-22 | MM_ITS ---
EXAMINATION: MM DIAGNOSTIC DIGITAL BREAST TOMOSYNTHESIS, BILATERAL US DIAGNOSTIC ULTRASOUND BREAST, RIGHT CLINICAL INFORMATION: Due for yearly. Also follow-up probable benign circumscribed hypoechoic nodule 9:00 right breast. The lifetime risk of breast cancer based on the Tyrer-Cuzick Model is 11%. COMPARISON: Mammography: 08/31/2021, 02/04/2021, 01/08/2021 (new baseline, BI-RADS 0); targeted right breast ultrasound 02/04/2021, 08/31/2021. TECHNIQUE: Digital breast tomosynthesis is performed in both the craniocaudal and mediolateral oblique views along with computer-aided detection (CAD). Synthesized 2D images are generated from the tomosynthesis. Additional right spot MLO x2 views are obtained. Ultrasound right breast is targeted to the outer breast using grayscale imaging and color Doppler without and with harmonics. FINDINGS: There are scattered areas of fibroglandular density (ACR BI-RADS breast composition Category b). Parenchymal pattern is similar to prior exams. There is no developing density or interval mass or architectural abnormality. No abnormal calcifications. There is a small dermal lesion again seen overlying the right axilla. The right nodule for follow-up appears similar in size to prior studies. Margins are partly obscured, prompting ultrasound. Ultrasound right breast demonstrates stable hypoechoic oval nodule 9:00 position 5 cm from nipple measuring approximately 5 x 4 mm. Margins are smooth. No increased or decreased through transmission of sound. Nodule will be reassessed again at next bilateral annual mammography to conclude long-term surveillance. Results are discussed with the patient at time of visit. MM/MM tomosynthesis diagnostic BI IMPRESSION: -No mammographic evidence of malignancy. -Small circumscribed benign-appearing nodule 9:00 right breast, stable. ASSESSMENT: BI-RADS 3: Probably Benign RECOMMENDATION: Diagnostic mammography and targeted right breast ultrasound at time of next annual exam, due in 12 months. This patient's information was entered into a reminder system with a target due date for their next mammogram.
== END 2022-03-22 08:50 | disposition home or self-care (01) ==
LOC: HO.MAMMO 08:49
PROVIDERS: PCP Internal Medicine; Visit Provider Internal Medicine
DX: N63.15 Unspecified lump in the right breast, overlapping quadrants (principal)
CPT/HCPCS: 76642; 77062; 77066

== ENCOUNTER 2022-04-29 05:54 | Outpatient (REF) | payer BC, SELFPAY ==
--- NOTE | ~2022-04-29 | CT_ITS ---
EXAMINATION: CT ABDOMEN AND PELVIS WITH CONTRAST CLINICAL INFORMATION: Colon cancer COMPARISON: Previous CT CT most recent January 2022 TECHNIQUE: Multidetector volumetric images were obtained from the superior aspect of the liver through the pubic symphysis following administration 85 mL of Omnipaque 350 intravenous contrast. Sagittal and coronal reformatted images were obtained on the technologist's workstation. Oral contrast: Yes This CT examination was performed using dose optimization techniques as appropriate, variously including the following: *Automated exposure control *Adjustment of mA and/or kV according to patient size (this includes techniques or standardized protocols for targeted exams where dose is matched to indication/reason for exam; i.e. extremities or head) *Use of iterative reconstruction technique DLP: 203 mGy-cm FINDINGS: LUNG BASES: See chest CT report from the same day LIVER, GALLBLADDER, AND BILIARY TREE: There is a 2.2 x 2.4 cm low-attenuation lesion in the caudate lobe increased in size from 1 x 1.2 cm January 2018. No other liver lesion is seen. The liver is slightly low in attenuation suggestive of fatty infiltration. The gallbladder is normal. There is no biliary duct dilatation. PANCREAS: Unremarkable. SPLEEN: Unremarkable. ADRENAL GLANDS: Nodular appearance of the left adrenal gland with at least one focal low-attenuation nodule measuring 6 x 9 mm in the posterior limb. This is similar to previous exams. Normal right adrenal gland. KIDNEYS AND URETERS: The kidneys are normal in size, shape, and attenuation. No hydronephrosis, hydroureter, or calculi seen. No perinephric stranding. BLADDER: The bladder is empty and not well evaluated. GASTROINTESTINAL TRACT: Postsurgical changes to the low sigmoid colon or upper rectum. Mild constipation and diverticulosis of the colon. Normal small bowel and appendix. Normal stomach. ABDOMINAL WALL: No significant hernia is appreciated. LYMPH NODES: Normal. VASCULAR: There is evidence of atherosclerotic disease. No aneurysm. PELVIC VISCERA: Unremarkable. OSSEOUS STRUCTURES: Unremarkable. CT/CT abdomen pelvis w IV con IMPRESSION: Interval increase in size in solitary liver lesion. Stable small left adrenal nodule. Stable postsurgical changes to the distal colon or upper rectum. Constipation. Fleischner guidelines were followed.
--- NOTE | ~2022-04-29 | CT_ITS ---
EXAMINATION: CT CHEST WITH CONTRAST CLINICAL INFORMATION: Pulmonary nodules. History of metastatic colon cancer. COMPARISON: Previous chest CT most recent January 2022 TECHNIQUE: Multidetector volumetric CT imaging of the chest was obtained after the administration of 50 mL of Omnipaque 350 intravenous contrast without immediate adverse reactions. Axial MIP volume rendering provided. Sagittal and coronal reformatted images were obtained. This CT examination was performed using dose optimization techniques as appropriate, variously including the following: *Automated exposure control *Adjustment of mA and/or kV according to patient size (this includes techniques or standardized protocols for targeted exams where dose is matched to indication/reason for exam; i.e. extremities or head) *Use of iterative reconstruction technique DLP: 285 mGy-cm FINDINGS: MEDICAL TECHNOLOGIST CHEMISTRY: Pulmonary nodules LUNGS: There is interval increase in size and number of bilateral pulmonary nodules. Largest left pulmonary nodule is a cavitary left upper lobe nodule measuring 1.3 x 1.9 cm axial image 192 series 5 compared to 1 x 1.4 cm January 2022. Largest right pulmonary nodule is a 7 x 10 mm right lower lobe nodule axial image 7 series 5 compared to 4 x 5 mm January 2022. MEDIASTINUM: Normal thyroid gland. Right jugular port with tip projecting over the SVC. Normal heart size. No pericardial effusion. No enlarged hilar or mediastinal lymph nodes. Normal caliber thoracic aorta. CORONARY ARTERY CALCIFICATION: None visualized on this study. PLEURA: There is no pleural effusion. No pleural mass or thickening. AXILLA: No lymphadenopathy. UPPER ABDOMEN: Nodular appearance of the left adrenal gland. Partially visualized 2 x 2.2 cm low-attenuation lesion in the caudate lobe of the liver axial image 61 series 3 increased in size from 0.8 x 1.2 cm. OSSEOUS STRUCTURES: Congenital midthoracic spine hemivertebrae. CT/CT chest w IV con IMPRESSION: Interval increase in size and number of bilateral pulmonary nodules. Fleischner guidelines were followed.
[2022-04-29] MEDS: iohexoL 350 MG/ML 100 ML INFUS..BTL IV (09:02)
[2022-04-29] MEDS: Barium Sulfate Oral (Vanilla) 450 ML ORAL.SUSP 900 ML PO (09:03)
== END 2022-04-29 05:55 | disposition home or self-care (01) ==
LOC: HO.CT 05:54
PROVIDERS: Visit Provider Internal Medicine Medical Oncology
DX: R91.8 Other nonspecific abnormal finding of lung field (principal); C18.7 Malignant neoplasm of sigmoid colon
CPT/HCPCS: 71260; 74177; Q9967

== ENCOUNTER 2022-10-18 06:02 | Outpatient (REF) | payer BC, SELFPAY ==
--- NOTE | ~2022-10-18 | CT_ITS ---
EXAMINATION: CT CHEST CT ABDOMEN WITH IV CONTRAST CLINICAL INDICATION: Follow up pulmonary nodule. COMPARISON: CT chest, abdomen pelvis 04/29/2022. TECHNIQUE: 5 mm thin axial and reformatted 3 mm thin sagittal and coronal images of chest, abdomen and pelvis were obtained following IV 85 mL Omnipaque 300. DLP 243 mGy-cm. This CT examination was performed using dose optimization technique as appropriate, variously including the following: Automated exposure control Adjustment of MA and/or KV according to patient size(this includes techniques or standardized protocols for targeted exams where dose is matched to indication/reason for exam; extremities or head. Use of iterative reconstruction techniques. FINDINGS: CHEST: Lungs: The largest cavitary nodule seen previously measured 1.3 x 1.9 cm now is smaller and measures 9 mm x 9 mm. The cavitation has improved. There is a 6 mm nodule right upper lobe axial image 79/6, improved, a 4 mm nodule right upper lobe axial image 201/6, and there are small nodules scattered throughout the lungs which are similar or smaller. For example, a right upper lobe nodule, paravascular, previously measured 7 mm on axial image 24/7 has improved and now measures 3 mm. No new nodules are seen. There is minimal focal thickening left major fissure, likely a small lymph nodes. No acute consolidation. The lungs are expanded with right lower lobe band-like atelectasis. It is new. Mediastinum: Thyroid lobes are symmetric and normal. The central trachea and bronchi are widely patent. The heart size and great vessels are normal caliber. There is no pericardial effusion. No abnormal-sized mediastinal or hilar lymph nodes seen. There is no coronary artery calcification seen. Pleura: There is no pleural thickening or effusion. Axilla: No abnormal-sized axillary lymph nodes seen. The chest wall is unremarkable. There is a right-sided Port-A-Cath catheter with its tip in the [id number] SVC. Osseous Structures: No aggressive lytic or sclerotic process seen. ABDOMEN AND PELVIS: Liver, Ducts and Gallbladder. Liver is normal size, contour and density. Previously seen lesion in the caudate lobe now measures 8 x 6 mm. There is some focal fatty infiltration along the ligament teres. The gallbladder is unremarkable. No intrahepatic or extrahepatic ductal dilatation seen. Spleen: Unremarkable. Pancreas: Unremarkable. Adrenal Glands: Small left adrenal nodule is stable measuring 8 mm. Kidneys: Both kidney nephrograms are normal size, shape and contour. No focal enhancing lesion or hydronephrosis seen. There is no cyst. No perinephric stranding. Lymphovascular Structures: There is mild arthroscopic calcification of abdominal aorta without aneurysmal dilatation. No abnormal lymph nodes seen. GI Tract: Oral contrast opacified colon is unremarkable. There is scattered stool and gas seen throughout the colon. There are postsurgical annular sutures in the distal sigmoid/rectum with patent lumen. The small bowel loops are normal caliber. There is no free air or free fluid. The stomach is normal. Abdominal Wall: Unremarkable. Pelvis: The bladder is nondistended. No abnormal pelvic or inguinal lymph nodes seen. No free fluid. The uterus is retroverted to the right of midline. Osseous Structures: There is mild ventral spondylosis L2-L3, L3-L4 disc levels. No aggressive lytic or sclerotic process seen. CT/CT abdomen pelvis w IV con IMPRESSION: Interval improvement of largest cavitary lesion left upper lobe. There are other smaller nodules which are similar or smaller to previous exam. No new nodules seen. Postsurgical changes with widely patent distal sigmoid/rectal junction is noted. Caudate lobe lesion is smaller. No new lesions seen. There is likely focal fatty infiltration along the ligament teres. Stable left adrenal nodule.
[2022-10-18] MEDS: iohexoL 350 MG/ML 100 ML INFUS..BTL IV (08:48)
[2022-10-18] MEDS: Barium Sulfate Oral (Berry) 450 ML ORAL.SUSP 900 ML PO (09:03)
== END 2022-10-18 06:03 | disposition home or self-care (01) ==
LOC: HO.CT 06:02
PROVIDERS: PCP Internal Medicine; Visit Provider Internal Medicine Medical Oncology
DX: R91.8 Other nonspecific abnormal finding of lung field (principal); C18.7 Malignant neoplasm of sigmoid colon
CPT/HCPCS: 71260; 74177; Q9967

== ENCOUNTER 2023-02-17 07:26 | Outpatient (REF) | payer BC, SELFPAY ==
--- NOTE | ~2023-02-17 | CT_ITS ---
EXAMINATION: CT CHEST, ABDOMEN AND PELVIS WITH IV CONTRAST CLINICAL INDICATIONS: Follow up colon cancer/lung nodules. COMPARISON: CT chest, abdomen and pelvis 10/18/2022. TECHNIQUE: 5 mm thin axial and reformatted 3 mm thin sagittal and coronal images of chest, abdomen and pelvis were obtained following IV 85 mL Omnipaque 350. DLP: 270 mGy-cm. This CT examination was performed using dose optimization technique as appropriate, variously including the following: Automated exposure control Adjustment of MA and/or KV according to patient size(this includes techniques or standardized protocols for targeted exams where dose is matched to indication/reason for exam; extremities or head. Use of iterative reconstruction techniques. FINDINGS: CHEST: LUNGS: There is a left upper lobe known cavitary lesion with less of a cavitation now measuring 8 x 9 mm on axial slice 218/6 minimally smaller than the last exam. A 2 mm pulmonary nodule previously measured 3 mm axial image 209/6 is noted with minimal change. There is a right lateral apical nodule measuring 7 mm on axial image 84/6, stable. Small micronodules seen bilaterally are stable. There are no new nodules visualized. No acute consolidation or mass seen. MEDIASTINUM: Thyroid lobes are symmetrical and normal. The central trachea and the bronchi are widely patent. Right central port catheter tip remains in mid to distal SVC. Heart size is normal. No pericardial effusion seen. No coronary artery calcifications visualized. No abnormal size mediastinal or hilar lymph nodes. PLEURA: There is no pleural effusion, thickening or calcification. AXILLA: There is no abnormal size axillary lymph nodes seen. The chest wall is unremarkable. ABDOMEN AND PELVIS: LIVER, DUCTS AND GALLBLADDER: The liver is mildly attenuated but no focal lesion seen. There is no intrahepatic ductal dilatation. It is of normal size and contour. SPLEEN: Unremarkable. PANCREAS: Unremarkable. ADRENAL GLANDS: There is a 7 mm left adrenal nodule which is stable. The right adrenal gland is unremarkable. KIDNEYS: Both kidney nephrograms are symmetrical in size, shape and position. No radiopaque renal calculi or hydronephrosis seen. LYMPHOVASCULAR STRUCTURES: The abdominal aorta is normal caliber. No retroperitoneal lymph nodes or mass seen. GI TRACT: Oral contrast opacified colon and some of the distal small bowel loops are normal caliber. There is moderate stool and gas seen in the colon. Appendix is not visualized. There is no free fluid or inflammatory process. PELVIS: The urinary bladder is nondistended. The uterus is retroverted and to the right of midline. There is no free fluid. No pelvic or inguinal lymph nodes seen. OSSEOUS STRUCTURES: No aggressive lytic or sclerotic process seen. Mild ventral spondylosis noted. CT/CT abdomen pelvis w IV con IMPRESSION: 1. Minimal decrease in the left upper lobe cavitary lesion. The other pulmonary nodules are stable. No new nodules seen. 2. No abnormal mediastinal or axillary lymphadenopathy. 3. No abnormal retroperitoneal or pelvic lymph nodes seen. 4. Mild constipation. 5. Stable left adrenal nodule.
[2023-02-17] MEDS: iohexoL 350 MG/ML 100 ML INFUS..BTL IV (10:02)
== END 2023-02-17 07:27 | disposition home or self-care (01) ==
LOC: HO.CT 07:26
PROVIDERS: Visit Provider Internal Medicine Medical Oncology
DX: C18.7 Malignant neoplasm of sigmoid colon (principal)
CPT/HCPCS: 71260; 74177; Q9967

== ENCOUNTER 2023-03-23 08:24 | Outpatient (AMB) | payer BC, SELFPAY ==
[2023-03-23 08:54] VITALS: BP 136/72; PULSE 92; O2SAT 97; BMI 18.2
--- NOTE | 2023-03-23 08:54 | A.OFFPC_ITS ---
Vital Signs 03/23/23 08:54 Height 5 ft 6 in Weight 113 lb BMI 18.2 BP 136/72 Blood Pressure Location Lt brachial Position Sitting Pulse 92 Pulse Source Pulse Oximeter Pulse Oximetry (%) 97 Oxygen Delivery Method Room Air Intake Visit Reasons: PE Allergies Penicillins [PENICILLINS] Allergy (Intermediate, Verified 03/23/23 08:54) Difficulty Breathing Medication List - Last Reconciled 03/23/23 by Zainab Samuels MD alprazolam 0.5 mg PO BID PRN 30 days ascorbic acid (vitamin C) (Vitamin C) 500 mg PO DAILY cholecalciferol (vitamin D3) 50 mcg PO DAILY colestipol 2 grams (2 x 1 gram) PO QID cyclobenzaprine 10 mg PO BEDTIME PRN 30 days dexamethasone 4 mg PO BID duloxetine 20 mg PO BID fiber 1 cap PO DAILY iron 65 mg PO DAILY loperamide 2 mg PO Q4H PRN metronidazole 1% (Metrogel) 1 appl topical BEDTIME minocycline 100 mg PO DAILY ondansetron 8 mg PO Q8H [turkeytail mushroom ] vitamin B complex 1 tab PO DAILY vitamin E 184 mg PO DAILY Tobacco use date assessed: 09/07/22 Dental Screening Dental Screen Date: 03/23/23 Did you have a dental visit in the last 12 months?: No Did you have a dental problem in the last 6 months where you did not have access to dental care?: No Was dental information given to patient?: No HPI PE HPI Details 63-year-old female with colon cancer(metastatic rectal carcinoma with lung Mets December 2019 status post surgical resection and chemotherapy) generalized anxiety disorder coming in for physical exam. Last seen in August 2022. CT chest and abdominal and pelvis February 2023 Minimal decrease in the left upper lobe cavitary lesion. The other pulmonary nodules are stable. No new nodules seen. 2. No abnormal mediastinal or axillary lymphadenopathy. 3. No abnormal retroperitoneal or pelvic lymph nodes seen. 4. Mild constipation. 5. Stable left adrenal nodule. [facility] Medical History Anemia Cancer of sigmoid colon (~2019) Diverticulitis History of anxiety History of chemotherapy History of neuropathy History of tremor Hx of fracture Hx of shortness of breath Personal history of nicotine dependence Small bowel obstruction Varicose vein of leg Wears partial dentures Surgical History History of bronchoscopy (~05/2021) History of colon resection (~01/2020) History of colonoscopy (~08/2020) History of ileostomy (~01/2020) History of reversal of ileostomy (~05/2020) History of tonsillectomy History of tubal ligation Family History (Updated 03/23/23 @ 08:55 by Theodora Cid CMA) Mother Alzheimer's dementia Alzheimer disease Heart problem Father Esophageal cancer Alcohol abuse Heart problem Maternal Aunt Stomach cancer Breast cancer Social History (Updated 03/23/23 @ 09:39 by Zainab Samuels MD) Household Members: Family and Children Household Members Other:: Housing: House Are you a primary patient care secretary to a significant other at home: No Do you presently have visiting nurse or other home services: No Alcohol intake: current Patient Tobacco Use Status: Former Tobacco user Tobacco use type: Cigarette Cigarette Packs Per Day: 1 Years Smoked: 44 quit 2019 e-Cigarette/Vaping Use: Never Used Second Hand Smoke Exposure: No Substance Use Type: Marijuana Advance Directives Date on File: 12/23/19 service: No Current occupational status: employed Cognitive needs: No Hearing needs: No Vision needs: Yes (reading glasses) Female Reproductive History Menstrual Age of Menarche: 14 Questionnaire PHQ-9 Over the last 2 weeks, how often have you been bothered by any of the following problems? 1. Little interest or pleasure in doing things: not at all 2. Feeling down, depressed, or hopeless: not at all 3. Trouble falling or staying asleep, or sleeping too much: not at all 4. Feeling tired or having little energy: not at all 5. Poor appetite or overeating: not at all 6. Feeling bad about yourself - or that you are a failure or have let yourself or your family down: not at all 7. Trouble concentrating on things, such as reading the newspaper or watching television: not at all 8. Moving or speaking so slowly that other people could have noticed. Or the opposite - being so fidgety or restless that you have been moving around a lot more than usual: not at all 9. Thoughts that you would be better off or of hurting yourself in some way: not at all Total score: 0 Depression Screening Interpretation: Negative Source: Developed by Drs. Wilfredo Menendez, Hari Hermosillo and colleagues, with an educational lluvia from [employer]. Thrive Questionnaire Date Thrive assessed: 09/07/22 AUDIT C Alcohol Use Questionnaire (AUDIT-C) 1. How often do you have a drink containing alcohol?: 2-3 times a week 2. How many drinks containing alcohol do you have on a typical day when you are drinking?: 1 or 2 3. How often do you have six or more drinks on one occasion?: Never Total Score: 3 MILANA-7 AMB Questionnaire MILANA-7 Date MILANA - 7 assessed: 09/07/22 Source: Developed by Drs. Wilfredo Menendez, Hari Hermosillo and colleagues, with an educational lluvia from [employer]. Review of Systems Const Denies poor appetite and Denies weakness Eyes Denies no additional complaints ENT Reports Normal hearing present, Denies dizziness, Denies nasal congestion, Denies tinnitus and Denies sore throat Card Denies chest pain, Denies syncope, Denies rapid heart rate and Denies dyspnea Resp Denies cough and Denies dyspnea GI Denies change in stool character, Reports constipation, Denies diarrhea, Denies nausea and Denies vomiting Denies urinary frequency, Denies difficulty voiding and Denies dysuria Neuro Reports Normal hearing present, Denies confusion, Denies dizziness, Denies syncope and Denies weakness Psych Denies confusion Physical exam (Primary Care) Vital Signs: Last Vital Signs Pulse 92 03/23/23 08:54 BP 136/72 03/23/23 08:54 Pulse Ox 97 03/23/23 08:54 Oxygen Delivery Method Room Air 03/23/23 08:54 Care Plan Goal for BP management: Guaiac negative stools positive hemorrhoids no swelling BMI result Body Mass Index 18.2 Tobacco/Smoking Status: Tobacco use Status Tobacco use date assessed 09/07/22 03/23/23 08:56 Patient Tobacco Use Status Former Tobacco user 03/23/23 08:56 Tobacco use type Cigarette 03/23/23 08:56 e-Cigarette/Vaping Use Never Used 03/23/23 08:56 PHQ-9: PHQ-9 Score PHQ-9: Total score 0 03/23/23 09:12 Depression Screening Interpretation: Negative Thrive Assessment: Date of Thrive Assessment Date Thrive assessed 09/07/22 03/23/23 08:56 Const General: No confusion Orientation/consciousness: No confusion HENMT Head: Yes normocephalic Ears: external ears normal and TM's normal bilaterally Face and sinus: Yes normal facial exam Mouth: moist mucous membranes Throat: Yes tonsils normal Eyes Conjunctivae: conjunctivae normal Pupils: Equal, round and reactive pupils present and Pupil accommodation reflex normal Direct Ophthalmoscopy: normal light reflex Neck Neck: No lymphadenopathy Thyroid: Thyroid normal Chest Chest palpation & inspection: normal inspection of the chest Resp Effort & Inspection: normal respiratory effort and no audible wheezes Auscultation: clear to auscultation bilaterally, no crackles, no wheezes and lung sounds not diminished Cardio Rate: regular rate Rhythm: regular rhythm Peripheral pulses: radial pulses present and dorsalis pedis present GI Palpation (GI): no masses Auscultation: normal bowel sounds and normoactive bowel sounds Skin General skin exam: no rashes or lesions noted Rashes: no rashes Neuro General: No confusion Cranial nerves: Yes Equal, round and reactive pupils present and Yes Normal hearing present Cognition (Neuro): normal cognition Gait exam (Neuro): Normal gait present Motor exam (neuro): 5/5 motor strength present throughout Deep tendon reflexes (DTR's): Right brachioradialis reflex intensity grade: 2+, Left brachioradialis reflex intensity grade: 2+, Right patellar reflex intensity grade: 2+ and Left patellar reflex intensity grade: 2+ Extrem General: No edema Assessment and Plan Assessment & Plan (1) Annual physical exam: Code(s): Z00.00 - Encounter for general adult medical examination without abnormal findings (2) Cancer of sigmoid colon: Onset Date: ~2019 Comment: (Adenocarcinoma - Dx 12/2019, s/p surgical resection & chemotherapy - metastatic to the lungs liver and retroperitoneal/iliac lymph nodes) Code(s): C18.7 - Malignant neoplasm of sigmoid colon Plan: Patient continues to be followed up by hematology oncology (3) Diarrhea: Code(s): R19.7 - Diarrhea, unspecified Plan: Placed on colestipol (4) Generalized anxiety disorder: Code(s): F41.1 - Generalized anxiety disorder Plan: Continue with present medication (5) Elevated blood sugar: Code(s): R73.9 - Hyperglycemia, unspecified Orders: Orders Vitamin B12 and Folate Today C18.7 - Malignant neoplasm of sigmoid colon Ferritin Today R73.9 - Hyperglycemia, unspecified Hemoglobin A1c Today R73.9 - Hyperglycemia, unspecified IRON PROFILE Today C18.7 - Malignant neoplasm of sigmoid colon Free T4 (Free Thyroxine) Today C18.7 - Malignant neoplasm of sigmoid colon Thyroid Stimulating Hormone Today C18.7 - Malignant neoplasm of sigmoid colon Reticulocyte Count Today R73.9 - Hyperglycemia, unspecified XR DEXA axial skeleton Today C18.7 - Malignant neoplasm of sigmoid colon, M81.0 - Age-related osteoporosis without current pathological fracture UA w Microscopic Today R73.9 - Hyperglycemia, unspecified Medications: Refilled cyclobenzaprine 10 mg PO BEDTIME PRN 30 tabs 2RF muscle spasm 30 days R73.9 - Hyperglycemia, unspecified Coding Level of Care Code Tele Est Pt Level 5 (47244) Est Pt Prev Care 40-64y(01770) Diagnoses Annual physical exam Z00.00 Cancer of sigmoid colon C18.7 Diarrhea R19.7 Generalized anxiety disorder F41.1 Elevated blood sugar R73.9
== END 2023-03-23 10:02 | disposition home or self-care (01) ==
PROVIDERS: PCP Internal Medicine; Visit Provider Internal Medicine
DX: Z00.00 Encounter for general adult medical examination without abnormal findings (principal); C18.7 Malignant neoplasm of sigmoid colon; R19.7 Diarrhea, unspecified; F41.1 Generalized anxiety disorder; R73.9 Hyperglycemia, unspecified
CPT/HCPCS: 99396

== ENCOUNTER 2023-03-23 12:51 | Outpatient (REF) | payer BC, SELFPAY ==
--- NOTE | ~2023-03-23 | US_ITS ---
EXAMINATION: MM DIAGNOSTIC DIGITAL BREAST TOMOSYNTHESIS, BILATERAL US BREAST LIMITED, RIGHT MAMMOGRAPHY: CLINICAL INFORMATION: 1 year follow-up for small probably benign oval nodule right breast 9:00 axis measuring 4 mm. Patient due for bilateral routine screening. COMPARISON: Mammography: 03/22/2022, 01/28/2022, 01/08/2021 TECHNIQUE: Digital breast tomosynthesis is performed in both the craniocaudal and mediolateral oblique views along with computer-aided detection (CAD). Synthesized 2D images are generated from the tomosynthesis. In addition, spot magnification 2-D left CC and ML views were performed. FINDINGS: There are scattered areas of fibroglandular density (ACR BI-RADS breast composition Category b). There is a stable 4 mm oval circumscribed mass at the 9:00 axis of the right breast, middle one third. There is otherwise no suspicious abnormality in the right breast. The left breast, there are loosely grouped calcifications which were characterized on magnification views, approximately 3 groups, in the retroareolar superior region, which have a punctate and benign appearance. These have likely been present previously although has not been previously evaluated. Six-month interval follow-up left breast mammography with magnification views recommended to ensure stability. There are no additional suspicious findings in the left breast. ULTRASOUND: CLINICAL INFORMATION: 1 year Follow-up probably benign oval nodule right breast 9:00 axis measuring 4 mm. COMPARISON: 03/22/2022 ultrasound. TECHNIQUE: Targeted sonographic evaluation was performed of the right breast focusing on the 9:00 axis using a high frequency linear transducer. Selected archived documentation. FINDINGS: RIGHT BREAST: There is a stable mildly hypoechoic oval circumscribed mass in the right breast at the 9:00 axis, 5 cm from the nipple, measuring 4 mm in diameter. This demonstrates no internal color Doppler flow no posterior features. It is completely unchanged from the prior exam and most likely represents a small benign fibroadenoma. It has been stable over one year. US/US breast RT limited mamm only IMPRESSION: 1. Stable 5 mm nodule right breast 9:00, probably benign fibroadenoma. Recommend six-month interval follow-up ultrasound to ensure stability. 2. Probably benign loosely grouped calcifications in the anterior left breast, for which six-month interval follow-up mammography recommended to include standard magnification views. OVERALL ASSESSMENT: Mammography: BI-RADS 3 - Probably benign finding(s) - 6 month follow-up suggested Ultrasound: BI-RADS 3 - Probably benign finding(s) - 6 month follow-up suggested RECOMMENDATION: 6 Month F/U Results were provided to the patient at time of visit by the technologist. This patient's information was entered into a reminder system with a target due date for their next mammogram.
== END 2023-03-23 12:52 | disposition home or self-care (01) ==
LOC: HO.MAMMO 12:51
PROVIDERS: PCP Internal Medicine; Visit Provider Internal Medicine
DX: N63.15 Unspecified lump in the right breast, overlapping quadrants (principal)
CPT/HCPCS: 76642; 77062; 77066

== ENCOUNTER → 2023-03-23 13:00 | Outpatient (BNV) | payer BC, SELFPAY | PROVIDERS: PCP Internal Medicine; Visit Provider Radiology Diagnostic Radiology | DX: N63.10 Unspecified lump in the right breast, unspecified quadrant (principal) | CPT/HCPCS: 76642; 77062; 77066 ==

== ENCOUNTER 2023-03-31 10:59 | Outpatient (REF) | payer BC, SELFPAY | END 2023-03-31 11:00 | disposition home or self-care (01) | LOC: HO.LAB 10:59 | PROVIDERS: PCP Internal Medicine; Visit Provider Internal Medicine | DX: Z13.89 Encounter for screening for other disorder (principal) ==

== ENCOUNTER 2023-04-07 09:30 | Outpatient (REF) | payer BC, SELFPAY ==
--- NOTE | ~2023-04-07 | FL_ITS ---
EXAMINATION: XR FLUOROSCOPY CLINICAL INFORMATION: No blood return from port COMPARISON: None available. TECHNIQUE: The patient came to the port accessed. The port was aspirated and blood could be withdrawn. The port flushed easily. The port was injected with 5 mL Omnipaque 300 contrast under fluoroscopy. The Port-A-Cath was flushed with saline and instilled with 5 mL heparin 100 unit per mL Hep-Lock flush solution. FINDINGS: There is a right internal jugular port with tip projecting over the cavoatrial junction. The port and catheter are intact and widely patent. No significant fibrin sheath is seen at the tip of the catheter. FLUOROSCOPY TIME: 7 seconds DOSE AREA PRODUCT: 72 uGy-m2 (microgray-meter squared) total dose 1.2 mgy FL/FL fluoroscopy <1hr IMPRESSION: Patent right internal jugular Port-A-Cath. No significant fibrin sheath seen.
== END 2023-04-07 09:31 | disposition home or self-care (01) ==
LOC: HO.XRAY 09:30
PROVIDERS: PCP Internal Medicine; Visit Provider Internal Medicine Medical Oncology
DX: C18.7 Malignant neoplasm of sigmoid colon (principal)
CPT/HCPCS: 76000

== ENCOUNTER → 2023-04-07 09:37 | Outpatient (BNV) | payer BC, SELFPAY | PROVIDERS: PCP Internal Medicine; Visit Provider Radiology Diagnostic Radiology | DX: Z45.2 Encounter for adjustment and management of vascular access device (principal) | CPT/HCPCS: 36598 ==

== ENCOUNTER 2023-07-26 06:14 | Outpatient (REF) | payer SELFPAY | END 2023-07-26 06:15 | disposition home or self-care (01) | LOC: HO.CT 06:14 | PROVIDERS: PCP Internal Medicine; Visit Provider Internal Medicine Medical Oncology | DX: Z13.89 Encounter for screening for other disorder (principal) ==

== ENCOUNTER 2025-04-23 12:58 | Emergency (ER) | payer SELFPAY ==
[2025-04-23 13:04] VITALS: BP 100/60; BP 99/43; PULSE 80; PULSE 90; RESP 20; TEMP 36.4; O2SAT 94; BMI 18.8
--- NOTE | 2025-04-23 13:35 | ED_ITS ---
HPI - General Adult General Chief complaint: General Medical Stated complaint: Cancer pain Time Seen by Provider: 04/23/25 13:35 Source: patient and family Mode of arrival: EMS Limitations: no limitations History of Present Illness ED Provider: HPI narrative: Determined that ill 65-year-old woman here for hospice referral d/t cancer with mets and less than 6 months to live. She states she wishes to be comfort measures only, we would like help expediting hospice care, no interest in admission she is here with her family. She states she has been jaundice for the past 2 weeks, and needs medications for pain control. She has colon cancer with Mets to pelvis, liver, lungs, diagnosed in 2019 finished chemo and then stop with chemo to travel for 2 years. EMS provided 75 mcg of IM fentanyl. States generally pain went down to 4/10 also read like something for acid reflux and nausea. Related Data Home Medications ?Medication ?Instructions ?Recorded ?Confirmed fiber 1 cap PO DAILY 09/07/2104/24 iron 18 mg tablet 65 mg PO DAILY 02/01/2204/24 vitamin B complex 1 tab PO DAILY 02/01/2204/24 cholecalciferol (vitamin D3) 50 50 mcg PO DAILY 05/15/23 mcg (2,000 unit) capsule ascorbic acid (vitamin C) 500 mg 500 mg PO DAILY 09/1605/15/23 tablet (Vitamin C) loperamide 2 mg capsule 2 mg PO Q4H PRN Diarrhea 05/15/23 vitamin E 268 mg (400 unit) capsule 184 mg PO DAILY 05/15/23 turkeytail mushroom 03/23/23 05/15/23 Previous Rx's ?Medication ?Instructions ?Recorded ondansetron 8 mg disintegrating 8 mg PO Q8H #60 tabs 1 08/13/21 tablet minocycline 100 mg capsule 100 mg PO DAILY #90 caps dexamethasone 4 mg tablet 4 mg PO BID #100 tabs metronidazole 1 % topical gel 1 appl topical BEDTIME # 45 grams 12/22/22 (Metrogel) colestipol 1 gram tablet 2 g (2 x 1 gram) PO QID #60 tabs 12/30/22 duloxetine 20 mg capsule,delayed 20 mg PO BID #180 cap s 02/06/23 release alprazolam 0.5 mg tablet 0.5 mg PO BID PRN Anxiety 30 days 02/20/23 #60 tabs cyclobenzaprine 10 mg tablet 10 mg PO BEDTIME PRN musc le spasm 03/23/23 30 days #30 tabs diazepam 2 mg tablet (Valium) 2 mg PO TID PRN anxiety 7 days #20 04/23/25 tabs docusate sodium 100 mg capsule 100 mg PO TID 7 days #2 1 caps 04/23/25 (Colace) omeprazole 40 mg capsule,delayed 40 mg PO DAILY 30 day s #30 caps 04/23/25 release ondansetron 4 mg disintegrating 4 mg PO Q8H PRN nausea and 04/23/25 tablet vomiting 7 days #20 tabs oxycodone 10 mg tablet,crush 10 mg PO BID 7 days #14 t abs 04/23/25 resistant,extended release 12 hr oxycodone 5 mg tablet 5 mg PO Q6H PRN pain 7 days #30 04/23/25 tabs senna leaf extract 176 mg/5 mL 10 ml PO BEDTIME #237 m L 04/23/25 oral syrup (senna) Allergies Allergy/AdvReac Type Severity Reaction Status Date / Time Penicillins (PENICILLINS) Allergy Intermediate Difficulty Verified 04/23/25 13:11 Breathing Review of Systems Constitutional: Constitutional: Reports as per HPI [facility] Past Medical History Medical History Anemia Cancer of sigmoid colon (~2019) Diverticulitis History of anxiety History of chemotherapy History of neuropathy History of tremor Hx of fracture Hx of shortness of breath Personal history of nicotine dependence Small bowel obstruction Varicose vein of leg Wears partial dentures Surgical History History of bronchoscopy (~05/2021) History of colon resection (~01/2020) History of colonoscopy (~08/2020) History of ileostomy (~01/2020) History of reversal of ileostomy (~05/2020) History of tonsillectomy History of tubal ligation Family History Family History Mother Alzheimer's dementia Alzheimer disease Heart problem Father Esophageal cancer Alcohol abuse Heart problem Maternal Aunt Stomach cancer Breast cancer Social History Social History Household Members: Family and Children Household Members Other:: Housing: House Are you a primary medicare compliance auditor to a significant other at home: No Do you presently have visiting nurse or other home services: No Alcohol intake: current Comment: pt asleep Patient Tobacco Use Status: Former Tobacco user Tobacco use type: Cigarette Cigarette Packs Per Day: 1 Cigarettes Per Day: 20.0 Years Smoked: 44 quit 2020 Smoked in Last 30 Days: No e-Cigarette/Vaping Use: Never Used Second Hand Smoke Exposure: No Use of substances other than those prescribed or required for medical reasons: No Substance Use Type: Marijuana Advance Directives Date on File: 12/23/19 Patient : No service: No Current occupational status: employed Cognitive needs: No Hearing needs: No Vision needs: Yes (reading glasses) Physical Exam ED Vital Signs: Vital Signs - 24 hr 04/23/25 13:04 Temperature 97.6 F Pulse Rate 90 Respiratory Rate 20 Blood Pressure 99/43 L Pulse Oximetry 94 Oxygen Delivery Method Room Air BMI result Body Mass Index 18.8 Medications Administered Discontinued Medications Generic Name Dose Route Start Last Admin Trade Name Freq PRN Reason Stop Dose Admin Al Hydroxide/Mg Hydroxide 15 ml 04/23/25 13:51 04/23/25 13:59 Magnesium Hydrox/Alum Hydrox 30 Ml Oral.Susp PO 04/23/25 13:52 15 ml ONCE ONE Administration Ondansetron HCl 4 mg 04/23/25 13:51 04/23/25 14:00 Ondansetron Odt 4 Mg Tab.Rapdis TRANSLINGU 04/23/25 13:52 4 mg ONCE ONE Administration Oxycodone HCl 10 mg 04/23/25 13:51 04/23/25 14:00 Oxycodone Hcl Er 10 Mg Tab.Er.12h PO 04/23/25 13:52 10 mg ONCE ONE Administration General: Jaundice patient, chronically ill-appearing ? ?scleral icterus ? ?Resp: ?No wheezing rales rhonchi no stridor moving air well ? Skin: Jaundice ? ?Neuro: ?Alert and oriented x3, moving upper and lower extremities symmetrically, no obvious facial asymmetry noted, cranial nerves 2-12 intact Medical Decision Making Medical Decision Making [facility] Narrative: 2:00 PM 04/23/2025 (Dr. Rojas Delacruz): I spoke with the case management she will be referred to hospice, I will also provide patient medications for pain control, anxiety, nausea and some other supportive medications for her. She can be discharged. She obviously has jaundice this is that has been addressed, last scan 2 years ago, she does have colon cancer and this is Mets to liver and other organs she has not mentioned. Differential Diagnosis Differential Diagnoses: The differential diagnosis associated with the presentation includes (See above) Admission/Observation Consideration of admission/observation: Escalation of care including admission/observation considered Independent Historian Clinical information obtained from an independent historian. History obtained from or confirmed by: Spouse and EMS Tests considered The following testing was considered but not selected: CT abdomen and pelvis, CT chest, blood work such as CBC, CMP, lipase Prescription Management I considered prescription management with: Pain Medication Critical Care Time Critical Care Time Critical Care Time: Yes Total Critical Care Time: 32 Attestation: Time is exclusive of separately billable procedures. Time includes: direct patient care, patient reassessment, coordination of patient care, interpretation of data (laboratory data, pulse oximetry, arterial blood gases and chest xrays), review of patient's medical records, medical consultation and documentation of patient care. Procedures excluded from critical care time: central intravenous line placement and electrocardiography. Discharge Plan Discharge Clinical Impression: Late stage terminal illness Patient Disposition: Home, Self-Care Additional Instructions: I will briefcase sewer has reached out to hospice as I have discussed with the you, in the meantime I am prescribing oxycodone 10 mg extended release that you will take 1 in the morning 1 at bedtime, oxycodone 5 mg every 6 hours needed for pain control, Valium 2 mg every 8 hours as needed for anxiety, use Colace, senna for constipation and Zofran as needed for nausea and vomiting. Omeprazole before bedtime for acid reflux. Or concerns come back to the ER, I provided you any other issues concerns come back to the ER I provided you with a maximum of medications that I can which is only 7 days' worth additional medications please involve hospice or Oncology or your PCP Prescriptions: New oxycodone 10 mg tablet,oral only,ext.rel.12 hr 10 mg PO BID 7 Days Qty: 14 0RF Rx Instructions: Partial Fill upon patient request. oxycodone 5 mg tablet 5 mg PO Q6H PRN (Reason: pain) 7 Days Qty: 30 0RF Rx Instructions: Partial Fill upon patient request. diazepam [Valium] 2 mg tablet 2 mg PO TID PRN (Reason: anxiety) 7 Days Qty: 20 0RF docusate sodium [Colace] 100 mg capsule 100 mg PO TID 7 Days Qty: 21 0RF ondansetron 4 mg tablet,disintegrating 4 mg PO Q8H PRN (Reason: nausea and vomiting) 7 Days Qty: 20 0RF senna leaf extract [senna] 176 mg/5 mL syrup 10 ml PO BEDTIME Qty: 237 0RF omeprazole 40 mg capsule,delayed release(DR/EC) 40 mg PO DAILY 30 Days Qty: 30 0RF No Action duloxetine 20 mg Capsule,Delayed Release(Dr/Ec) 20 mg PO BID Qty: 180 4RF alprazolam 0.5 mg tablet 0.5 mg PO BID PRN (Reason: Anxiety) 30 Days Qty: 60 3RF fiber Capsule 1 cap PO DAILY vitamin B complex Tablet 1 tab PO DAILY iron 18 mg Tablet 65 mg PO DAILY ondansetron 8 mg Tablet,Disintegrating 8 mg PO Q8H Qty: 60 4RF minocycline 100 mg Capsule 100 mg PO DAILY Qty: 90 4RF loperamide [Imodium] 2 mg Capsule 2 mg PO Q4H PRN (Reason: Diarrhea) Rx Instructions: administer after each loose stool until symptoms controlled; do not exceed 8 mg per 24 hrs ascorbic acid (vitamin C) [Vitamin C] 500 mg Tablet 500 mg PO DAILY vitamin E 268 mg (400 unit) Capsule 184 mg PO DAILY dexamethasone 4 mg Tablet 4 mg PO BID Qty: 100 0RF Rx Instructions: Take 4 mg b.i.d. for 2 days starting day after chemo, every 2 weeks. metronidazole [Metrogel] 1 % Gel 1 appl TOPICAL BEDTIME Qty: 45 3RF colestipol 1 gram Tablet 2 g PO QID Qty: 60 4RF cholecalciferol (vitamin D3) 50 mcg (2,000 unit) capsule 50 mcg PO DAILY (DME) turkeytail mushroom 0 .ROUTE .MEDSUPPLY cyclobenzaprine 10 mg tablet 10 mg PO BEDTIME PRN (Reason: muscle spasm) 30 Days Qty: 30 2RF Print Language: Djib[place]ian
[2025-04-23] MEDS: Magnesium Hydrox/Alum Hydrox 30 ML ORAL.SUSP 15 ML PO (13:59)
[2025-04-23] MEDS: oxyCODONE HCl ER 10 MG TAB.ER.12H PO (14:00)
--- NOTE | 2025-04-23 14:05 | PC.NURSE ---
Requesting hospice and pain management, wants to be d/c home tonight. end stage cancer, no chemo for 2 years.
--- NOTE | 2025-04-23 14:21 | MHC.CM.ED ---
Received notification from Juju RILEY that family has contacted [facility] and they are willing to provider hospice at home. Spoke with Nikki at [facility]. Nikki requesting clinical info be faxed to [phone]. Info faxed as requested. [facility] being updated by Dr Delacruz. Continue to monitor for d/c needs.
[2025-04-23 14:45] VITALS: BP 89/44; PULSE 90; RESP 22; TEMP 36.5; O2SAT 92
[2025-04-23 14:51] VITALS: BP 89/44; PULSE 90; RESP 22; TEMP 36.5; O2SAT 92
--- OUTSIDE RECORDS SUMMARY | 2025-04-23 15:31 | XMS_ITS | Clinical Summary ---
Author Organization [employer] Address [address] [facility] [address] [place] [address] Care Team Providers Care Developmental Services Worker Name Role Phone Unavailable Primary Care Provider Unavailabl e Allergies Active Allergy Reactions Criticality Noted Date Comments Penicillin G 06/29/2023 Medications ALPRAZolam (Xanax) 0.5 MG tablet Take 0.5 mg by mouth if needed in the morning and at bedtime. 3 Active colestipol (Colestid) 1 g tablet TAKE TWO TABLETS BY MOUTH FOUR TIMES A DAY 3 Active cyclobenzaprine (Flexeril) 10 MG tablet TAKE ONE TABLET BY MOUTH AT BEDTIME NEEDED FOR MUSCLE SPASM 3 Active dexAMETHasone (Decadron) 4 MG tablet TAKE 1 TABLET BY MOUTH TWICE A DAY FOR 2 DAYS AFTER CHEMOTHERAPY. 3 Active DULoxetine (Cymbalta) [address] capsule Take 20 mg by mouth 2 times daily. 3 Active ondansetron (Zofran) 8 MG tablet Take 8 mg by mouth every 8 (eight) hours. 3 Active minocycline 100 MG capsule Take 100 mg by mouth in the morning. 3 Active metroNIDAZOLE (Metrogel) 1 % gel APPLY ONE APPLICATION TOPICALLY AT BEDTIME 3 Active Social History Tobacco Use Types Packs/Day Years Used Date Smoking Tobacco: Never Assessed Tobacco Cessation:Counseling Given: Not Answered Comments Unknown Sex and Gender Information Value Date Recorded Sex Assigned at Female 05/15/2023 9:05 AM EDT Legal Sex Female 9:02 AM EDT Gender Identity Female 05/15/2023 9:05 AM EDT Sexual Orientation Straight 05/15/2023 9: 05 AM EDT Last Filed Vital Signs Vital Sign Reading Time Taken Comments Blood Pressure 118/80 06/29/2023 8:20 AM EST Pulse - - Temperature - - Respiratory Rate - - Oxygen Saturation - - Inhaled Oxygen Concentration - - Weight - - Height - - Body Mass Index - - Plan of Treatment Health Maintenance Due Date Last Done Comments CT Colonography 1961 Colonoscopy 1961 Colorectal Cancer Screening 1961 Dental Oral Exam 1961 Dental Prophylaxis 1961 Dental X-Ray: Bitewings 1961 Depression Screening 1961 FIT DNA/Cologuard 1961 FIT 1961 FOBT 1961 HIV Screening 1961 SDOH Screening 1961 Sigmoidoscopy 1961 Disability Screening 1961 Alcohol/Substance Use Screening 1973 Tobacco Screening 1973 Hepatitis C Screening 1979 Pap Smear 1982 Cervical Cancer Screening 1991 HPV/Cotest 1991 Mammogram 2001 Zoster Vaccines (1 of 2) 2011 COVID-19 Vaccine (3 - 2024-2 6 season) 2025 10/30/2020, 10/09/2020 Influenza Vaccine (#1) 2025 Dental X-Ray: Full Mouth 06/30/2026 06/29/2023 DTaP/Tdap/Td Vaccines (2 - T d or Tdap) 07/22/2026 07/22/2016 RSV Patients and Patients Aged 60 years or older (1 - 1-dose 75+ series) 02/18/2036 Pneumococcal Vaccine: 50+ Years Completed 03/07/2022 HIB Vaccines Aged Out No longer eligi ble based on patient's age to complete this topic HPV Vaccines Aged Out No longer eligi ble based on patient's age to complete this topic Hepatitis A Vaccines Aged Out No long er eligible based on patient's age to complete this topic Hepatitis B Vaccines Aged Out No long er eligible based on patient's age to complete this topic IPV Vaccines Aged Out No longer eligi ble based on patient's age to complete this topic Meningococcal B Vaccine Aged Out No l onger eligible based on patient's age to complete this topic Meningococcal Vaccine Aged Out No mona liliane eligible based on patient's age to complete this topic RSV under 20 months Aged Out No longe r eligible based on patient's age to complete this topic Rotavirus Vaccines Aged Out No longer eligible based on patient's age to complete this topic Procedures Procedure Name Priority Date/Time Associated Diagnosis Comments PANORAMIC RADIOGRAPHIC IMAGE Routine 06/29/2023 8:00 AM EST from Last 3 Months or Most Recently Relevant to Health Maintenance
--- OUTSIDE RECORDS SUMMARY | 2025-04-23 15:32 | XMS_ITS | Clinical Summary ---
Author Organization Loc[facility] Address [address] [place] [id number] Phone Care Team Providers Care Dental Instrument Maker Name Role Phone Pcp, Unknown Primary Care Provider Unavailabl e Allergies Active Allergy Reactions Criticality Noted Date Comments Penicillins Hives 12/25/2019 Medications fluticasone propionate (FLONASE) 50 mcg/actuation nasal spray 1 spray by Nasal route daily. Active vitamin E 200 UNIT capsule Take 200 Units by mouth daily. Active Active Problems Problem Noted Date Diagnosed Date Adenocarcinoma, colon 02/11/2020 History of diverticulitis 12/25/2019 Immunizations Immunization Administration Dates Next Due Tdap 07/22/2016 Family History Medical History Relation Comments Diabetes Brother Diverticulitis Brother Esophageal cancer Father Stroke Father Ulcerative colitis Maternal Aunt Diabetes Maternal Grandfather Diabetes Maternal Grandmother Alzheimer's disease Mother early Relation Status Comments Brother Father Maternal Aunt Maternal Grandfather Maternal Grandmother Mother Social History Tobacco Use Types Packs/Day Years Used Date Smoking Tobacco: Every Day Cigarettes 0.3 35 Smokeless Tobacco: Never Alcohol Use Standard Drinks/Week Comments Yes 0 (1 standard drink = 0.6 oz pur e alcohol) Education Answer Date Recorded Are you interested in more education? Not on isa e 11/18/2022 Are you concerned about learning? Not on file 11/18/2022 No 11/18/2022 No 11/18/2022 Digital Access Answer Date Recorded No 12/17/2022 No 12/17/2022 Reliable internet access at home? Not on file 12/17/2022 Device with a working camera? Not on file Comments Unknown Sex and Gender Information Value Date Recorded Sex Assigned at Not on file Legal Sex Female 9:47 PM EDT Gender Identity Not on file Sexual Orientation Not on file Last Filed Vital Signs Vital Sign Reading Time Taken Comments Blood Pressure 120/78 07/22/2016 3:56 AM EST Pulse 102 07/22/2016 3:56 AM EST Temperature - - Respiratory Rate - - Oxygen Saturation - - Inhaled Oxygen Concentration - - Weight 58.5 kg (129 lb) 02/11/2020 1:24 PM EDT Height 165.7 cm (5' 5.25 ) 07/22/2016 3:56 AM ES T Body Mass Index 21.3 07/22/2016 3:56 AM EST Plan of Treatment Health Maintenance Due Date Last Done Comments LIPID PANEL 1961 DEPRESSION SCREENING 1973 SMOKING Hx and SMOKELESS TOBACCO SCREENING 1974 HEPATITIS C SCREENING 1979 HIV ONE-TIME SCREENING (18-6 5 YEARS) 1979 ZOSTER VACCINES (1 of 2) 02/18/1980 PAP SMEAR 1982 MAMMOGRAM 2001 COLOGUARD 2006 FIT TEST 2006 FOBT 2006 SIGMOIDOSCOPY 2006 VIRTUAL COLONOSCOPY 2006 INFLUENZA VACCINE (#1) 2025 COVID-19 VACCINE (3 - 2024-2 6 season) 2025 10/30/2020, 10/09/2020 Adult Td,Tdap Booster 07/22/2026 07/22/2016 COLONOSCOPY 01/15/2030 01/16/2020, 01/16/2020 COLORECTAL CANCER SCREENING 01/15/2030 RSV VACCINE (1 - 1-dose 75+ series) 02/18/2036 PNEUMOCOCCAL VACCINES (50+ years) Completed 03/07/2022 HEPATITIS A VACCINES Aged Out No long er eligible based on patient's age to complete this topic HIB VACCINES Aged Out No longer eligi ble based on patient's age to complete this topic MENINGOCOCCAL VACCINES (ACWY) Aged Out No longer eligible based on patient's age to complete this topic MENINGOCOCCAL VACCINES (B) Aged Out N o longer eligible based on patient's age to complete this topic Medical Devices Not on file Procedures Procedure Name Priority Date/Time Associated Diagnosis Comments COLONOSCOPY FOR RESULT EN TRY ONLY Routine 01/16/2020 from Last 3 Months or Most Recently Relevant to Health Maintenance Results * COLONOSCOPY FOR RESULT ENTRY ONLY (01/16/2020) us Historical Provider MD HEALTH MAINTENANCE Final Result from Last 3 Months or Most Recently Relevant to Health Maintenance [place] [address] [place] [address] [place] [address] [place] [address] [place] [place] [address] [place] [address] [place] [address] [place] [address] [place] [address] [place] [address] [place] [address] [place] [address] [place] [address] [place] [address] [place] [place] [address] [place] [address] [place] [place] [address] [place] [address] HMO POS Care Teams Dental Instrument Maker Relationship Specialty Start Date End Date Pcp, Unknown PCP - General 09/20/22 Additional Source Comments The information contained in this document represents components of the legal health record. It is not the complete legal health record.[facility]
--- OUTSIDE RECORDS SUMMARY | 2025-04-23 15:32 | XMS_ITS | Encounter Summary ---
Author Organization [facility] Address [address] [place] [address] [address] [place] [address] Phone Care Team Providers Care Plant Superintendent Name Role Phone Bonnie Chapman Primary Care Provider [phone] Bonnie Chapman Primary Care Provider [phone] Malka Land MD Unavailable Pcp, Unknown Primary Care Provider Unavailabl e Encounter Details Date Type Department Care Team (Late st Contact Info) Description 12/24/2019 Telephone [facility] [address] [place] [address] Malka Land MD [address] [address] [email or web address] Social History Tobacco Use Types Packs/Day Years Used Date Smoking Tobacco: Never Assessed Comments Unknown Sex and Gender Information Value Date Recorded Sex Assigned at Not on file Legal Sex Female 9:47 PM EDT Gender Identity Not on file Sexual Orientation Not on file documented as of this encounter Functional Status documented as of this encounter Plan of Treatment Not on file documented as of this encounter Visit Diagnoses Not on filedocumented in this encounter Care Teams Plant Superintendent Relationship Specialty Start Date End Date Bonnie Chapman FNP [address] [address] [email or web address] PCP - General Family Medicine 12/24/19 01/22/20 Bonnie Chapman FNP [address] [facility], [address] [place] [address] [email or web address] PCP - General Family Medicine 01/23/20 09/19/22 Pcp, Unknown PCP - General 09/20/22 Malka Land MD [address] [facility], [email or web address] [address] [place] [address] [email or web address] Insurance Assigned Provider 01/27/20 documented as of this encounter Additional Source Comments The information contained in this document represents components of the legal health record. It is not the complete legal health record.[facility]
--- OUTSIDE RECORDS SUMMARY | 2025-04-23 15:32 | XMS_ITS | Encounter Summary ---
Author Organization [facility] Address [address] [place] [address] [address] [place] [address] Phone Care Team Providers Care Plant And Maintenance Technician Name Role Phone Bonnie Chapman Primary Care Provider [phone] Bonnie Chapman Primary Care Provider [phone] Malka Land MD Unavailable [phone] Pcp, Unknown Primary Care Provider Unavailabl e Encounter Details Date Type Department Care Team (Late st Contact Info) Description 12/24/2019 Telephone [facility] [address] [place] [address] Malka Land MD [address] [address] [email or web address] Social History Tobacco Use Types Packs/Day Years [...] filedocumented in this encounter Care Teams Plant And Maintenance Technician Relationship Specialty Start Date End Date Bonnie Chapman FNP [address] [address] [email or web address] PCP - General Family Medicine 12/24/19 01/22/20 Bonnie Chapman FNP [address] [facility], [address] [place] [address] [email or web address] PCP - General Family Medicine 01/23/20 09/19/22 Pcp, Unknown PCP - General 09/20/22 Malka Land MD [address] [facility], [facility] [address] [place] [address] [email or web address] Insurance Assigned Provider 01/27/20 documented as of this encounter Additional Source Comments The information contained in this document represents components of the legal health record. It is not the complete legal health record.[facility]
--- OUTSIDE RECORDS SUMMARY | 2025-04-23 15:32 | XMS_ITS | Encounter Summary ---
Author Organization [employer] Address [address] [place] [address] Care Team Providers Care Program Or Project Administrator Name Role Phone Unavailable Primary Care Provider Unavailabl e Encounter Details Date Type Department Care Team (Late st Contact Info) Description 07/06/2023 Abstract [facility] [address] [place] [address] William Schroeder DDS [address] [place] [address] Social History Tobacco Use Types Packs/Day Years Used Date Smoking Tobacco: Never Assessed Comments Unknown Sex and Gender Information Value Date Recorded Sex Assigned at Female 05/15/2023 9:05 AM EDT Legal Sex Female 9:02 AM EDT Gender Identity Female 05/15/2023 9:05 AM EDT Sexual Orientation Straight 05/15/2023 9: 05 AM EDT documented as of this encounter Plan of Treatment Not on file documented as of this encounter Visit Diagnoses Not on filedocumented in this encounter
== END 2025-04-23 15:05 | disposition home or self-care (01) ==
PROVIDERS: Emergency Provider Emergency Medicine; PCP Internal Medicine
DX: R11.0 Nausea (principal); Z51.5 Encounter for palliative care; C18.9 Malignant neoplasm of colon, unspecified; C78.7 Secondary malignant neoplasm of liver and intrahepatic bile duct; C78.00 Secondary malignant neoplasm of unspecified lung; C79.89 Secondary malignant neoplasm of other specified sites
CPT/HCPCS: 99283; 99284